=== PATIENT | female | born 1940 | race Caucasian/White ===

== ENCOUNTER → 2016-05-16 | Outpatient (CLI) | payer BC ==
[~2016-05-16] MED LIST: AMLO2.5T PO; BUTACAP10 PO; CALC500C70 PO; CALCTAB7 PO; CHOL100010 PO; HYDR-5688 PO; LOSA100T2 PO; METO1TAB69 PO; NRV5 PO; ULT/50 PO
== END | disposition home or self-care (01) ==
LOC: C.MAMM 15:07
PROVIDERS: ATTEND Internal Medicine Geriatric Medicine
DX: M85.80 Other specified disorders of bone density and structure, unspecified site (principal); S52.90XA Unspecified fracture of unspecified forearm, initial encounter for closed fracture; X58.XXXA Exposure to other specified factors, initial encounter; Z87.891 Personal history of nicotine dependence; Z78.0 Asymptomatic menopausal state

== ENCOUNTER → 2016-07-01 | Day surgery (SDC) | payer BC ==
[2016-06-17 10:48] VITALS: Ht 157.5 cm; Wt 88.2 kg
[~2016-07-01] VITALS: Ht 157.5 cm; Wt 88.2 kg
[~2016-07-01] MED LIST changes: -BUTACAP10 PO; -CALCTAB7 PO; +FENTANYL CITRATE INJ 50 MCG/1 ML 2 ML VIAL ONE; -HYDR-5688 PO; +LIDOCAINE HCL 2% 2 ML VIAL (20MG/ML) ONE; -NRV5 PO; +PROPOFOL IV EMULSION 10 MG/ML 20 ML VIAL IV ONE; +SODIUM CHLORIDE 0.9% 500ML 500 ML IV ONE
[2016-07-01 13:05] VITALS: TEMP 36.8
--- NOTE | 2016-07-01 13:37 | Endo History and Physical ---
History & Physical Date of Service: Jul 01, 2016. Chief Complaint: ABD PAIN Referring Physician: Dr Fadi Ying History of Present Illness 76 yo CF who presents for EGD secondary to abdominal pain. Past Medical History Arthritis, Cancer, Hypertension Past Surgical History Hx Cardiac Surgery: No Hx Internal Defibrillator: No Hx Pacemaker: No Hx Abdominal Surgery: Yes (APPY, D&C) Hx of Implantable Prosthesis: No Hx Post-Op Nausea and Vomiting: Yes Hx Cancer Surgery: Yes (RT MASTECTOMY) Hx Thoracic Surgery: No Hx Orthopedic: No Hx Urinary Tract Surgery: No Family History None Social History Smoking Status: Former Smoker Hx Substance Use: No Hx Alcohol Use: No Allergies Coded Allergies: No Known Allergies (Verified , 06/17/16) Current Medications Reported Home Medications Medications Dose Route/Sig Max Daily Dose Days Date Category Os-Mariano 500 Plus D (Calcium/Vitamin D) Tab 1 Tab PO QAM 06/17/16 Reported Norvasc (Amlodipine Besylate) 2.5 Mg Tab 2.5 Mg PO QAM 06/17/16 Reported Hyzaar (Losartan Potassium & Hydrochlo) 1 Tab Tab 1 Tab PO QAM 30 10/27/14 Reported Vitamin D (Cholecalciferol) 1,000 Inter.unit Tab 1,000 Inter.unit PO QAM 07/09/12 Reported Ultram (Tramadol Hcl) 50 Mg Tab 50 Mg PO Q6HR PRN 08/01/11 Reported Toprol-Xl (Metoprolol Succinate) 100 Mg Tabcr 100 Mg PO QAM 08/01/11 Reported Vital Signs Weight (Kilograms): 88.18 Height (Feet): 5 Height (Inches): 2 Date Time Temp Pulse Resp B/P Pulse Ox O2 Delivery O2 Flow Rate FiO2 07/01/16 13:05 36.8 76 18 165/83 97 Room Air Physical Exam General Appearance: WD/WN, no apparent distress Respiratory/Chest: Auscultation: breath sounds normal Cardiovascular: Heart Auscultation: RRR Abdomen: Bowel Sounds: normal Inspection & Palpation: soft, non-distended, no tenderness, guarding & rebound Assessment and Plan Assessment: 76 yo CF who presents for EGD secondary to abdominal pain. Plan: Proceed with EGD.
--- NOTE | 2016-07-01 13:46 | Discharge Instructions ---
Endoscopy Patient Instructions Date / Procedure(s) Performed Jul 01, 2016. EGD Allergy Information Coded Allergies: No Known Allergies (Verified , 06/17/16) Discharge Date / Findings Jul 01, 2016. Gastritis s/p biopsies Esophagitis Medication Instructions 1) OK to resume all medications today as prescribed. 2) Start Protonix 40mg by mouth each morning 1/2 hour prior to breakfast. Reported Home Medications Medications Dose Route/Sig Max Daily Dose Days Date Category Os-Mariano 500 Plus D (Calcium/Vitamin D) Tab 1 Tab PO QAM 06/17/16 Reported Norvasc (Amlodipine Besylate) 2.5 Mg Tab 2.5 Mg PO QAM 06/17/16 Reported Hyzaar (Losartan Potassium & Hydrochlo) 1 Tab Tab 1 Tab PO QAM 30 10/27/14 Reported Vitamin D (Cholecalciferol) 1,000 Inter.unit Tab 1,000 Inter.unit PO QAM 07/09/12 Reported Ultram (Tramadol Hcl) 50 Mg Tab 50 Mg PO Q6HR PRN 08/01/11 Reported Toprol-Xl (Metoprolol Succinate) 100 Mg Tabcr 100 Mg PO QAM 08/01/11 Reported Provider Instructions Activity Restrictions - No exercising or heavy lifting for 24 hours. - Do not drink alcohol the day of the procedure. - Do not drive a car or operate machinery until the day after the procedure. - Do not make any important decisions or sign important papers in 24 hours after the procedure. Following Day: - Return to full activity which may include returning to work/school. Diet Start your diet with liquids and light foods (jello, soup, juice, toast). Then eat your usual diet if not nauseated. Treatment For Common After Affects For mild abdominal pain, bloating, or excessive gas: - Rest - Eat lightly - Lie on right side Follow-Up Information Follow-up with Dr Fadi Ying as scheduled Anesthesia Information What You Should Know You have had a procedure that required some medicine to reduce anxiety and discomfort. This treatment is called moderate sedation. After receiving the treatment, you may be sleepy, but you will be able to breathe on your own. The effects of the treatment may last for several hours. Follow these instructions along with Activity/Diet recommendations noted above: * Do NOT do anything where dizziness or clumsiness would be dangerous. * Rest quietly at home today, then you can be up and about tomorrow. * Have a responsible person stay with you the rest of today. * You may have had an I.V. today. If so, you may take the dressing off later today. Recommendations Call your doctor if: * Trouble breathing * Continuous vomiting for more than 24 hours * Temperature above 101 degrees * Severe abdominal pain or bloating * Pain not relieved by pain medicine ordered * There is increased drainage or redness from any incision * A large amount of rectal bleeding greater than 2-3 tablespoons. (If you had a polyp/s removed or have hemorrhoids, a small amount of blood - from the rectum is to be expected.) * You have any unanswered questions or concerns. IN THE EVENT OF A SERIOUS EMERGENCY, GO TO THE NEAREST EMERGENCY ROOM Your discharge instructions were prepared by provider Julio Perdomo. Patient Instructions Signature Page Rosalia Truong Patient (or Guardian) Signature/Date: I have read and understand the instructions given to me by my caregivers. Caregiver/RN/Doctor Signature/Date: The above-named patient and/or guardian has received patient instructions on this date. + Original Patient Signature Page (only) stays with chart. Please make copy for patient.
--- NOTE | 2016-07-01 13:49 | GI REPORT ---
Procedure Date: 07/01/2016 1:30 PM Procedure: Upper GI endoscopy Indications: Epigastric abdominal pain Medicines: Monitored Anesthesia Care Complications: No immediate complications. Estimated Blood Loss: Estimated blood loss: none. Procedure: Pre-Anesthesia Assessment: - Prior to the procedure, a History and Physical was performed, and patient medications and allergies were reviewed. The patient's tolerance of previous anesthesia was also reviewed. The risks and benefits of the procedure and the sedation options and risks were discussed with the patient. All questions were answered, and informed consent was obtained. Prior Anticoagulants: The patient has taken no previous anticoagulant or antiplatelet agents. ASA Grade Assessment: II - A patient with mild systemic disease. After reviewing the risks and benefits, the patient was deemed in satisfactory condition to undergo the procedure. After obtaining informed consent, the endoscope was passed under direct vision. Throughout the procedure, the patient's blood pressure, pulse, and oxygen saturations were monitored continuously. The scope was introduced through the mouth, and advanced to the second part of duodenum. The upper GI endoscopy was accomplished without difficulty. The patient tolerated the procedure well. Findings: Mildly severe esophagitis with no bleeding was found. Localized moderate inflammation characterized by erosions and erythema was found in the gastric antrum. Biopsies were taken with a cold forceps for Helicobacter pylori testing. The examined duodenum was normal. Impression: - Mildly severe reflux esophagitis. - Gastritis. Biopsied. - Normal examined duodenum. Recommendation: - Resume previous diet. - Continue present medications. - Await pathology results. - Return to GI office as previously scheduled. Julio Perdomo DO 07/01/2016 1:49:57 PM This report has been signed electronically. Note Initiated On: 07/01/2016 1:30 PM I attest to the content of the Intraoperative Record and orders documented therein, exceptions below
--- NOTE | 2016-07-01 14:09 | Anesthesiology Progress Note ---
Anesthesia Post Op Note Date & Time Jul 01, 2016 at 14:09 Vital Signs Pain Intensity: 0 Vital Signs Past 12 Hours Date Time Temp Pulse Resp B/P Pulse Ox O2 Delivery O2 Flow Rate FiO2 07/01/16 14:06 66 16 135/73 95 Room Air 07/01/16 13:51 67 16 148/74 95 Room Air 07/01/16 13:05 36.8 76 18 165/83 97 Room Air Notes Mental Status: alert / awake / arousable, participated in evaluation Pt Amnestic to Procedure: Yes Nausea / Vomiting: adequately controlled Pain: adequately controlled Airway Patency, RR, SpO2: stable & adequate BP & HR: stable & adequate Hydration State: stable & adequate Anesthetic Complications: no major complications apparent
[2016-07-01 14:22] VITALS: BP 159/83; PULSE 61; O2SAT 95
== END | disposition home or self-care (01) ==
LOC: C.GI 12:40
PROVIDERS: ATTEND Internal Medicine
DX: K29.50 Unspecified chronic gastritis without bleeding (principal); K21.0 Gastro-esophageal reflux disease with esophagitis; R10.13 Epigastric pain; I10 Essential (primary) hypertension; Z87.891 Personal history of nicotine dependence; M19.90 Unspecified osteoarthritis, unspecified site

== ENCOUNTER → 2016-08-09 | Outpatient (CLI) | payer BC ==
[~2016-08-09] MED LIST changes: -FENTANYL CITRATE INJ 50 MCG/1 ML 2 ML VIAL ONE; -LIDOCAINE HCL 2% 2 ML VIAL (20MG/ML) ONE; +METO100T44 PO; -METO1TAB69 PO; -PROPOFOL IV EMULSION 10 MG/ML 20 ML VIAL IV ONE; -SODIUM CHLORIDE 0.9% 500ML 500 ML IV ONE
--- NOTE | 2016-08-09 13:33 | MAMMOGRAPHY REPORT ---
UNILATERAL LEFT DIGITAL SCREENING MAMMOGRAM TOMOSYNTHESIS WITH CAD: 08/09/2016 CLINICAL HISTORY: Asymptomatic. Personal history of breast cancer. TECHNIQUE: Breast tomosynthesis in addition to standard 2D mammography was performed. Current study was also evaluated with a Computer Aided Detection (CAD) system. Left CC and MLO 2-D and tomosynth esis images were obtained. COMPARISON: Comparison is made to exams dated: 07/10/2015 mammogram, 07/04/2014 mammogram, 07/02/2013 mammogram, 10/12/2012 aspiration, 10/05/2012 ultrasound, and 10/05/2012 mammogram - [facility]. BREAST COMPOSITION: There are scattered areas of fibroglandular density in the left breast. FINDINGS: There are no suspicious masses, calcifications, or areas of architectural distortion noted in the left breast. There has been no significant interval change compared to prior exams. Asymme tries seen posterior to the left nipple and in the left superior breast on the MLO view are stable c ompared to multiple prior exams including the 2011 exam. A port catheter overlies the left pectoral is muscle. IMPRESSION: ACR BI-RADS CATEGORY 2: BENIGN There is no mammographic evidence of malignancy in the left breast. A 1 year screening mammogram is recommended. The patient will receive written notification of the results. Approximately 10% of breast cancers are not detected with mammography. A negative mammographic repor t should not delay biopsy if a clinically suggestive mass is present. Dalia De Oliveira M.D. ah/:08/09/2016 13:21:16 Cigar Packer And Grader: Vanita CORDOVA(R)(M), [facility] letter sent: Normal 1/2 BI-RADS Code: ACR BI-RADS Category 2: Benign
== END | disposition home or self-care (01) ==
LOC: C.MAMM 09:40
PROVIDERS: ATTEND Internal Medicine Geriatric Medicine
DX: Z12.31 Encounter for screening mammogram for malignant neoplasm of breast (principal); Z85.3 Personal history of malignant neoplasm of breast

== ENCOUNTER → 2016-10-23 | Outpatient (CLI) | payer BC ==
[~2016-10-23] MED LIST changes: -METO100T44 PO; +METO1TAB69 PO
[2016-10-23 17:36] LABS: CHOLESTEROL/HDL RATIO 3.3; THYROID STIMULATING HORMONE 2.36 uIu/ml (0.300-4.500)
[2016-10-24 07:04] LABS: ESTIMATED AVERAGE GLUCOSE 117 mg/dl; HA1C FLAG Normal (Normal)
--- NOTE | 2016-10-28 08:16 | CODING QUERY MEDICAL NECESSITY ---
SUPPORTING DIAGNOSIS NEEDED Dr. Ying, A supporting diagnosis is required for the test/procedure performed on this patient in order for us to be reimbursed by the patient's insurance. Please provide a supporting diagnosis for the following test/procedure listed below next to the test name along with your signature. *If there is no additional diagnosis for this patient that would support the following test/procedure please document that below next to the test/procedure. Test(s)/Procedure(s) that require a supporting diagnosis: * ([id number]) VITAMIN D ASSAY DIAGNOSIS: * [id number] GLYCATED HEMOGLOBIN DIAGNOSIS: DATE OF SERVICE: 10/23/16 Provider Signature: Date: Thank you Jairon Littlejohn Health Information Management Once completed, please kindly fax back to [phone] For questions please call [phone]
== END ==
LOC: C.LAB 15:06
PROVIDERS: ATTEND Internal Medicine Geriatric Medicine
DX: I10 Essential (primary) hypertension (principal); E55.9 Vitamin D deficiency, unspecified; R73.9 Hyperglycemia, unspecified

== ENCOUNTER → 2017-05-16 | Outpatient (CLI) | payer BC ==
[~2017-05-16] MED LIST changes: +METO100T44 PO; -METO1TAB69 PO
[2017-05-16 15:27] LABS: BASO % 0.2 %; BASO ABS # 0.02 K/uL (0-0.2); EOS % 0.2 %; EOS ABS # 0.02 K/uL (0-0.5); HEMATOCRIT 42.2 % (37-47); HEMOGLOBIN 13.9 g/dL (12.0-16.0); IG# 0.03 K/uL (0.00-0.02); LYMPH ABS # 1.95 K/uL (1.2-3.4); MEAN CELL VOLUME 91.7 fL (80-100); MEAN CORPUSCULAR HEMOGLOBIN 30.2 pg (25-34); MEAN CORPUSCULAR HGB CONC 32.9 g/dl (32-36); MEAN PLATELET VOLUME 10.1 fL (7.4-10.4); MONO % 5.5 %; MONO ABS # 0.57 K/uL (0.11-0.59); NEUT % 74.8 %; PLATELET COUNT 288 K/uL (130-400); RED CELL DISTRIBUTION WIDTH CV 13.5 % (11.5-14.5); RED CELL DISTRIBUTION WIDTH SD 44.8 fL (36.4-46.3); WHITE BLOOD COUNT 10.29 K/uL (4.8-10.8)
[2017-05-16 15:36] LABS: BLOOD UREA NITROGEN 19 mg/dl (7-18); CALCIUM 9.3 mg/dl (8.5-10.1); CARBON DIOXIDE 29 mmol/L (21-32); CREATININE 0.78 mg/dl (0.60-1.20); GLUCOSE 151 mg/dl (70-99); POTASSIUM 3.5 mmol/L (3.5-5.1); SODIUM 139 mmol/L (136-145)
== END | disposition home or self-care (01) ==
LOC: C.LAB 13:38
PROVIDERS: ATTEND Internal Medicine Geriatric Medicine
DX: I10 Essential (primary) hypertension (principal); R73.9 Hyperglycemia, unspecified; M19.90 Unspecified osteoarthritis, unspecified site; E78.5 Hyperlipidemia, unspecified; E55.9 Vitamin D deficiency, unspecified

== ENCOUNTER → 2017-08-11 | Outpatient (CLI) | payer BC ==
--- NOTE | 2017-08-12 07:39 | MAMMOGRAPHY REPORT ---
UNILATERAL LEFT DIGITAL SCREENING MAMMOGRAM TOMOSYNTHESIS WITH CAD: 08/11/2017 CLINICAL HISTORY: Asymptomatic. Personal history of breast cancer. TECHNIQUE: Left breast tomosynthesis in addition to standard 2D mammography was performed. Current st udy was also evaluated with a Computer Aided Detection (CAD) system. COMPARISON: Comparison is made to exams dated: 08/09/2016 mammogram, 07/10/2015 mammogram, 07/04/2014 m ammogram, 07/02/2013 mammogram, 10/05/2012 mammogram, and 04/03/2012 mammogram - [facility]. BREAST COMPOSITION: There are scattered areas of fibroglandular density in the left breast. FINDINGS: The hub of a Mediport catheter projects over the superior left pectoralis muscle on the MLO view. The glandular pattern is similar to prior exams. No suspicious mass, architectural distortio n or cluster of microcalcifications is seen. IMPRESSION: ACR BI-RADS CATEGORY 1: NEGATIVE There is no mammographic evidence of malignancy. A 1 year screening mammogram is recommended. The pa tient will receive written notification of the results. Approximately 10% of breast cancers are not detected with mammography. A negative mammographic report should not delay biopsy if a clinically suggestive mass is present. Ying Yadav M.D. ay/:08/11/2017 12:31:14 Harness Inspector: Lana BUSTAMANTE)(M), [facility] letter sent: Normal 1/2 BI-RADS Code: ACR BI-RADS Category 1: Negative
== END | disposition home or self-care (01) ==
LOC: C.MAMM 12:04
PROVIDERS: ATTEND Internal Medicine Geriatric Medicine
DX: Z12.31 Encounter for screening mammogram for malignant neoplasm of breast (principal); Z85.3 Personal history of malignant neoplasm of breast; Z90.11 Acquired absence of right breast and nipple

== ENCOUNTER → 2017-11-26 | Outpatient (CLI) | payer BC ==
[2017-11-26 15:44] LABS: BASO % 0.3 %; BASO ABS # 0.03 K/uL (0-0.2); EOS % 0.4 %; EOS ABS # 0.04 K/uL (0-0.5); HEMATOCRIT 41.7 % (37-47); HEMOGLOBIN 13.6 g/dL (12.0-16.0); IG# 0.03 K/uL (0.00-0.02); LYMPH % 19.2 %; LYMPH ABS # 1.91 K/uL (1.2-3.4); MEAN CELL VOLUME 89.5 fL (80-100); MEAN CORPUSCULAR HEMOGLOBIN 29.2 pg (25-34); MEAN CORPUSCULAR HGB CONC 32.6 g/dl (32-36); MONO % 6.9 %; MONO ABS # 0.69 K/uL (0.11-0.59); NEUT % 72.9 %; NEUT ABS # 7.24 K/uL (1.4-6.5); PLATELET COUNT 265 K/uL (130-400); RED CELL DISTRIBUTION WIDTH CV 13.3 % (11.5-14.5); WHITE BLOOD COUNT 9.94 K/uL (4.8-10.8)
[2017-11-26 16:25] LABS: ALBUMIN 3.7 gm/dl (3.4-5.0); ALKALINE PHOSPHATASE 90 U/L (45-117); ALT/SGPT 14 U/L (12-78); AST/SGOT 12 U/L (15-37); BLOOD UREA NITROGEN 18 mg/dl (7-18); CALCIUM 9.1 mg/dl (8.5-10.1); CARBON DIOXIDE 29 mmol/L (21-32); CHOLESTEROL 175 mg/dl (0-200); CREATININE 0.83 mg/dl (0.60-1.20); GLUCOSE 86 mg/dl (70-99); LDL CHOLESTEROL CALCULATED 89 mg/dl; POTASSIUM 3.8 mmol/L (3.5-5.1); SODIUM 139 mmol/L (136-145); TOTAL PROTEIN 7.6 gm/dl (6.4-8.2)
[2017-11-27 07:00] LABS: HEMOGLOBIN A1C 5.8 % (4.5-5.6)
== END | disposition home or self-care (01) ==
LOC: C.LAB 14:51
PROVIDERS: ATTEND Internal Medicine Geriatric Medicine
DX: I10 Essential (primary) hypertension (principal); R73.9 Hyperglycemia, unspecified; M19.90 Unspecified osteoarthritis, unspecified site; E78.5 Hyperlipidemia, unspecified; E55.9 Vitamin D deficiency, unspecified; Z68.35 Body mass index [BMI] 35.0-35.9, adult

== ENCOUNTER 2021-11-12 06:43 | Observation (INO) ==
--- NOTE | 2021-10-04 10:32 | PAT Medication Instructions ---
Medication Instructions Date of Service October 04, 2021 Home Medications Medication Instructions Recorded amlodipine 10 mg tablet 10 mg PO QAM #90 tab 05/31/20 tramadol 50 mg tablet 100 mg PO TID PRN #180 tab 09/12/21 cholecalciferol (vitamin D3) 75 mcg (3,000 unit) tablet 3,000 unit PO QAM calcium carbonate 600 mg-vitamin D3 20 mcg (800 unit) chewable tablet (Caltrate 600 plus D) 1 tab PO QAM econazole 1 % topical cream 1 appln TOPICAL BID PRN capsaicin 0.025 % topical cream 1 appln TOPICAL DAILY PRN amlodipine 10 mg tablet 10 mg PO QAM pantoprazole 40 mg tablet,delayed release 40 mg PO QAM spironolactone 50 mg tablet 50 mg PO QAM telmisartan 80 mg-hydrochlorothiazide 25 mg tablet 1 tab PO QAM cyanocobalamin (vitamin B-12) 1,000 mcg tablet 1,000 mcg PO DAILY ferrous sulfate 325 mg (65 mg iron) tablet 325 mg PO QAM tramadol 50 mg tablet 100 mg PO TID PRN metoprolol succinate 100 mg tablet,extended release 24 hr 150 mg PO QAM STOP taking 24 hours before surgery econazole 1 % topical cream 1 appln TOPICAL BID PRN capsaicin 0.025 % topical cream 1 appln TOPICAL DAILY PRN DO NOT take the morning of surgery cholecalciferol (vitamin D3) 75 mcg (3,000 unit) tablet 3,000 unit PO QAM calcium carbonate 600 mg-vitamin D3 20 mcg (800 unit) chewable tablet (Caltrate 600 plus D) 1 tab PO QAM spironolactone 50 mg tablet 50 mg PO QAM telmisartan 80 mg-hydrochlorothiazide 25 mg tablet 1 tab PO QAM cyanocobalamin (vitamin B-12) 1,000 mcg tablet 1,000 mcg PO DAILY ferrous sulfate 325 mg (65 mg iron) tablet 325 mg PO QAM Take morning of surgery With a small sip of water, OTHERWISE NOTHING TO EAT OR DRINK AFTER MIDNIGHT: amlodipine 10 mg tablet 10 mg PO QAM pantoprazole 40 mg tablet,delayed release 40 mg PO QAM tramadol 50 mg tablet 100 mg PO TID PRN (if needed) metoprolol succinate 100 mg tablet,extended release 24 hr 150 mg PO QAM Take evening before surgery tramadol 50 mg tablet 100 mg PO TID PRN (if needed) Other Notes If you have any questions please call us at [phone] or [phone] or [phone] or [phone]
--- NOTE | 2021-10-08 12:13 | Anesthesiology Consultation ---
Date of Service October 08, 2021 Assessment & Plan (1) Encounter for pre-operative examination: - Case discussed with Dr. Lira including cardiac history and note below, he advised patient is acceptable risk to proceed and does not need anything further prior to surgery. - cardiology 08/30/21 [place]: "...blood pressure is elevated, both today and on recent prior recordings it is predominantly systolic hypertension although several years ago her pressure was quite severely elevated with both systolic and diastolic. I had intended to increase her metoprolol at her last visit but that was not done, I am increasing it to 150 mg daily...Dyspnea on exertion: This appears to be about the same, I do not have a clear cardiovascular explanation for it and it may be deconditioning and her age. Conceivably she has chronotropic incompetence which we could look for with monitoring, however that seems unlikely and she is satisfied with the way she feels...Ectopic atrial rhythm...appears to have a low atrial rhythm, that was consistent at least on 2 electrocardiograms in the office by about 40 minutes...may not be present all of the time and is probably not a significant abnormality however could affect her heart rate response to activity as it may not respond appropriately to activities the way sinus rhythm does...not an escape rhythm since her heart rate is in the 70s on both electrocardiograms...heart rate however increased appropriately on stress testing therefore this is not likely a cause of her symptoms, although her stress test was done pharmacologically..." - COVID screening: Per assessment on 10/08/2021: Travel screen negative, no known COVID-19 positive contacts or current COVID-19 related symptoms in past 2 weeks. Pt vaccinated. Surgeon arranging preop COVID testing, scheduled 11/08/2021. Awaiting results. Chart Review Chart Review: Acceptable Risk for Surgery and Patient seen in Pre Admission Testing Teaching & Discussion Pre-Anesthesia Teaching/Discussion Notes: Instructed NPO after midnight before surgery, except medications with 15 cc of water. Medication instructions provided according to the PAT guidelines. History Surgery Operation Date: 11/12/21 08:50 Proposed Procedures p Right Total Knee Replacement - Jose Cerrato MD Height/Weight Height: 5 ft 1.5 in Weight: 86.8 kg Allergies Allergy/AdvReac Type Severity Reaction Status Date / Time No Known Allergies Allergy Verified 10/04/21 09:19 Medications Home Medications Medication Instructions Recorded Confirmed Last Taken cholecalciferol (vitamin D3) 75 3,000 unit PO QAM tab 09/25/18 10/04/21 07/18/20 09:00 mcg (3,000 unit) tablet calcium carbonate 600 mg-vitamin 1 tab PO QAM 11/12/18 10/04/21 07/18/20 09:00 D3 20 mcg (800 unit) chewable tablet (Caltrate 600 plus D) econazole 1 % topical cream 1 appln TOPICAL BID PRN #15 gm 11/19/18 10/04/21 05/23/19 capsaicin 0.025 % topical cream 1 appln TOPICAL DAILY PRN gm 11/23/18 10/04/21 05/23/19 amlodipine 10 mg tablet 10 mg PO QAM #90 tab 05/31/20 10/04/21 07/18/20 09:00 pantoprazole 40 mg tablet,delayed 40 mg PO QAM tab 07/05/20 10/04/21 07/18/20 09:00 release spironolactone 50 mg tablet 50 mg PO QAM 07/13/20 10/04/21 07/18/20 09:00 telmisartan 80 1 tab PO QAM 07/13/20 10/04/21 07/18/20 09:00 mg-hydrochlorothiazide 25 mg tablet cyanocobalamin (vitamin B-12) 1,000 mcg PO DAILY 01/10/21 10/04/21 Unknown 1,000 mcg tablet ferrous sulfate 325 mg (65 mg 325 mg PO QAM 01/10/21 10/04/21 Unknown iron) tablet tramadol 50 mg tablet 100 mg PO TID PRN #180 tab 09/12/21 10/04/21 Unknown metoprolol succinate 100 mg 150 mg PO QAM 10/04/21 10/04/21 Unknown tablet,extended release 24 hr Past Medical History Medical History Breast cancer (~10/2005) Chronic back pain CLAIRE (dyspnea on exertion) Dyslipidemia Ectopic atrial rhythm Gastroesophageal reflux disease Hypertension Limb alert care status Osteopenia of left thigh Port-A-Cath in place Sleep apnea Patient denies h/o stroke, seizures, heart attack, heart failure, DM, blood clots or blood transfusions. Exercise / Class Metabolic Activity II 4-5 Yardwork/Stairs/Walk up hill (SOB with 1 FOS, chronic without change or worsening, denies chest discomfort) Past Family History Family History Father Multiple myeloma Mother Lung disease Other No family history of adverse response to anesthesia Denies family history of Ovarian cancer Prostate cancer Myocardial infarction Breast cancer Lung cancer Colorectal cancer Past Surgical History Surgical History H/O mastectomy History of cataract surgery History of dilation and curettage History of esophagogastroduodenoscopy (EGD) Hx of appendectomy Hx of colonoscopy Hx of foot surgery Nausea and vomiting after administration of anesthetic agent Past Anesthesia History No Hx of Anesthesia Complications and No Family Hx of Anesthesia Complications History of PONV History of PONV (denies needing scop patch) and Hx of Motion Sickness Social History Smoking Status: Never smoker Do You Dip or Chew Tobacco: No Hx Alcohol Use: Yes Alcohol type: wine alcohol intake frequency: a few times a month Hx Substance Use: No substance use type: does not use Review of Systems Patient denies chest pain, fever, chills, cough, wheezing, or palpitations. Physical Exam Vital Signs Vitals BP 132/80 P 65 TEMP 98.3 SP02 94% on RA RESP 17 Physical Full cervical extension range of motion without pain TMD 3.5 finger breaths Mallampati Score 3 Dentition: intact, upper front plate and front implants, one chipped tooth with upcoming planned extraction-pt plans to contact surgeon's office as FYI/confirm acceptable; denies loose teeth, caps or crowns Lungs: normal respiratory effort. Clear throughout to auscultation, no ad ventitious breath sounds Cardiac: regular rate and rhythm, no murmurs noted Carotid arteries: negative bruit bilat Lab Results Anesthesia Preop Results Results Anesthesia Widget: WBC 11.21 K/uL (4.8-10.8) H 10/08/21 Hgb 14.8 g/dL (12.0-16.0) 10/08/21 Hct 45.0 % (37-47) 10/08/21 Plt 279 K/uL (130-400) 10/08/21 Na 137 mmol/L (136-145) 10/08/21 K 4.3 mmol/L (3.5-5.1) 10/08/21 Cl 102 mmol/L (98-107) 10/08/21 CO2 26 mmol/L (21-32) 10/08/21 BUN 24 mg/dl (6-23) H 10/08/21 Creat 0.80 mg/dl (0.6-1.2) 10/08/21 Glucose Level 114 mg/dl (70-99(Fasting)) H 10/08/21 PT 10.3 Seconds (9.0-12.0) 10/08/21 PTT 29.6 Seconds (21.0-31.0) 10/08/21 INR 1.0 (0.9-1.1) 10/08/21 Blood Type O Negative 10/08/21 Antibody Screen NEGATIVE 10/08/21 Testing Electrocardiogram Date: 10/08/21 NSR, rate 63 bpm Left axis deviation Chest X-Ray Date: 10/08/21 Frontal and lateral radiographs of the chest demonstrate the cardiomediastinal silhouette to be within normal limits. A Port-A-Cath is in place. The lungs are clear of alveolar opacities. There is no evidence for effusion bilaterally. There is no evidence for vascular congestion. There is no acute osseous pathology. IMPRESSION: 1. No acute cardiopulmonary disease. Stress Test Date: 08/15/21 Pharmacologic MPHR 92% Negative for myocardial ischemia EF 55-60% No wall motion abnormalities Mild mitral regurgitation Mild tricuspid regurgitation
--- NOTE | 2021-11-09 14:47 | History and Physical Report ---
DATE OF ADMISSION: 11/12/2021. CHIEF COMPLAINT: Persistent progressive right knee pain and discomfort. HISTORY OF PRESENT ILLNESS: The patient is an 81-year-old female who presents for surgical treatment of her right knee. She has got a long history of right knee pain and discomfort that has gradually gotten worse over time. She has been through extensive conservative treatment including injections, which have become less successful over time. She describes global pain. The more she is up and on it, the more it hurts. Gets stiff. She was actually scheduled to have her knee replaced in the past, but had to cancel due to some social issues. She now presents for surgical treatment. 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 PAST MEDICAL HISTORY: Significant for: 1. Hypertension. 2. Obesity with BMI of 36. 3. History of breast cancer. 4. Anemia. PAST SURGICAL HISTORY: Includes: 1. Mastectomy. 2. Heel spur removal. ALLERGIES: None. CURRENT MEDICATIONS: Include: 1. Iron. 2. Vitamin B12. 3. Unspecified blood pressure medicine. SOCIAL HISTORY: An 81-year-old female. She is . Does not smoke. Two drinks per week. FAMILY HISTORY: Noncontributory. REVIEW OF SYSTEMS: Negative for diabetes. Denies any neurological problems, vascular problems or bleeding disorders. No chest pain or shortness of breath. No history of DVT or PE. PHYSICAL EXAMINATION: GENERAL: Shows a pleasant middle-aged female. Looks to be in pretty good health. HEENT: Benign. NECK: Supple. No lymphadenopathy. LUNGS: Clear to auscultation. HEART: Has a regular rate and rhythm. ABDOMEN: Soft, nontender, nondistended. EXTREMITIES: Grossly neurovascularly intact except as follows. Examination of the right knee reveals the patient ambulates independently. She has got varus alignment to her knee. She is tender with medial joint line. She has got some bony hypertrophy medially. Small knee effusion. Range of motion is about 10 degrees short of full extension to about 90 degrees of flexion. The knee is pretty stiff. No pain with hip motion. X-RAYS: X-rays of the right knee reviewed. It shows advanced right knee degenerative joint disease. She has got tricompartment disease. Complete loss of her joint space. A fairly similar, but less severe left knee degenerative joint disease. 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 She has failed conservative treatment. She would like to proceed with knee replacement. She is hoping to go to [facility] for rehabilitation. PLAN: We will proceed with right knee replacement. The risks and benefits of this procedure were explained to the patient and include but not limited to DVT, PE, , infection, neurological injury, vascular injury, bleeding problem, pain, limited range of motion, stiffness, failure to relieve her symptoms, incomplete relief of symptoms, need for further surgery in the future, etc. The patient understands and desires to proceed. Informed consent was obtained. She is hoping to go to [facility] postoperatively. We will try and arrange for that if possible depending on insurance issues. She does ____ take care of her while she is recovering. She will follow back in the clinic in 2 weeks postop. Job ID: [id number] [facility] HOSPITALElvira
[~2021-11-12 06:43] MED LIST changes: +ACETAMINOPHEN 500 MG TAB PO SCH; -AMLO2.5T PO; +BUPIVACAINE 0.5 % 5 MG/1 ML PF 10ML VIAL ONE; +BUPIVACAINE LIPOSOME/PF 266 MG, BUPIVACAINE/EPINEPHRINE 50 ML, SODIUM CHLORIDE 0.9% 30 ... INFIL SCH; -CALC500C70 PO; -CHOL100010 PO; +CeleBREX 200 MG CAP PO SCH; +FAMOTIDINE 20 MG TAB PO SCH; -LOSA100T2 PO; +LR 500ML BOLUS, THEN 15ML/HR IV SCH; +LR 60ML/HR IV SCH; -METO100T44 PO; +METOCLOPRAMIDE HCL 10 MG TABLET PO SCH; +ROPIVACAINE 0.5% 5 MG/ML 30 ML VIAL ONE; +TRANEXAMIC ACID 1,000 MG **IV Intra-op IV SCH; -ULT/50 PO; +ceFAZolin 2000MG 2,000 MG/15 ML SYR IV SCH
[2021-11-12] MEDS ORDERED: BUPIVACAINE 0.5 % 5 MG/1 ML PF 10ML VIAL ONE (06:47)
--- NOTE | 2021-11-12 06:53 | History & Physical Bridge Note ---
Date of Service November 12, 2021 History & Physical Bridge Note I have examined the patient, reviewed the History & Physical and in the interval since the performance of the History & Physical I have noted the following changes of clinical significance: no changes noted
[2021-11-12] MEDS ORDERED: PROPOFOL IV EMULSION 10 MG/ML 20 ML VIAL IV ONE (07:40)
[2021-11-12] MEDS ORDERED: fentaNYL citrate 100 MCG/2 ML VIAL ONE (07:40)
[2021-11-12] MEDS ORDERED: ONDANSETRON INJ 2 MG/ML 2 ML VIAL ONE (07:40)
[2021-11-12] MEDS ORDERED: ePHEDrine sulfate 50 MG/ML AMP IV PRN (08:27)
[2021-11-12] MEDS ORDERED: ATROPINE SULFATE 0.1 MG/ML 10ML SYR IV PRN (08:27)
[2021-11-12] MEDS ORDERED: fentaNYL citrate 100 MCG/2 ML VIAL IV PRN (08:27)
[2021-11-12] MEDS ORDERED: ONDANSETRON INJ 2 MG/ML 2 ML VIAL IV PRN (08:27)
[2021-11-12] MEDS ORDERED: SODIUM CHLORIDE 0.9% PF 50 ML VIAL ONE (08:59)
[2021-11-12] MEDS ORDERED: BUPIVACAINE LIPOSOME 1.3% 266 MG/20 ML VIAL ONE (08:59)
[2021-11-12] MEDS ORDERED: BUPIVACAINE/EPINEPHRINE 0.25% 1:200,000 30 ML VIAL ONE (08:59)
[2021-11-12] MEDS ORDERED: DEXAMETHASONE SOD INJ 4 MG/ML VIAL ONE (09:33)
[2021-11-12] MEDS ORDERED: ePHEDrine sulfate 50 MG/ML SYR ONE (09:55)
--- NOTE | 2021-11-12 11:34 | Operative Report ---
PG Post Operative Report Pre & Post Diagnosis Operation Date: 11/12/21 08:50 Pre-Op Diagnosis: Right Knee Osteoarthritis Post-Op Diagnosis: Right Knee Osteoarthritis I identified the patient and participated in the time-out.: Yes Procedure Operation Date: 11/12/21 08:50 Actual Procedures p Right Total Knee Replacement(Right) - Jose Cerrato MD Surgeon Jose Cerrato MD Personnel Director Gilberto Trivedi PA-C Estimated Blood Loss 50 Findings Consistent with Post-Op Diagnosis Operative findings revealed advanced right knee tricompartment DJD. She had extensive grade 4 [id number] disease in all 3 compartments with a very stiff knee. She had a chronic ACL deficiency. Osteophytes in all 3 compartments. Specimens Right knee sent for pathology Anesthesia Type General Regional Complications none Disposition Accompanied Patient To Recovery: No Indications Patient 81-year-old female has had a long history of bilateral knee pain discomfort of the right side of the greater than left. She been through extens curly conservative treatment which became less successful over time patient became significantly debilitated by her knee pain and discomfort. She elected proceed with total knee arthroplasty. Description of Procedure Operative implants consist of: 1 Biomet Vanguard size 65 right posterior stabilized femoral component. 2. Biomet size 67 tibial tray. 3. 14 mm posterior stabilized polyethylene plus insert 4. 34 x 8 and half all Paller patella. The patient was taken the operating, identified, and placed on the operating table supine position protectors were properly padded. IV antibiotics tried by anesthesia team. A spinal anesthetic and abductor canal block had provided in the holding area. A Rivero catheter was placed in sterile fashion. Right Tetrick was then placed in the right lower extremities and prepped and draped in usual sterile fashion. The right leg was elevated exsanguinated with use of an Esmarch in terms playset 300 mmHg. An anterior approach of the right knee was then performed to longitudinal incision centered over the patella. Upon making the incision the patient was having discomfort and clearly failing this so a general anesthetic was implemented. We then proceeded with the procedure. Sharp dissection was carried through subcutaneous tissue directly down the extensor mechanism. A medial parapatellar arthrotomy incision was made. Some subperiosteal dissection was carried out medially. The fat pad was resected from Neath patella tendon. The lateral patellofemoral ligament was released. Patella subluxated laterally. She had large osteophytes around the patella so I had to remove these in order to immobilize this. The osteophytes were taken off the intercondylar notch area. The PCL was released from the distal femur. We tried to subluxate the tibia anterior but were unable to do so due to the large osteophytes posteriorly. I therefore elected to cut the femur first. The distal femur examined the sharp drill bit intramedullary canal was suction. A right 5 degree valgus cutting guide was placed. Distal femoral cutting block was pinned in place. The distal femoral cut was made to take an additional 5 mm of bone off distal femur due to her flexion contracture. Once we are removed from the distal femur I can get in the back of the tibia and we could subluxated anteriorly so we went to a tibial preparation. The external tibial alignment jig was then placed in the interface the tibia and adjusted 14 mm medially. Proximal tibial cut was made remove about 1 mm bone from the most deficient aspect. Some osteophytes taken off medial and posterior medially. Tibia sized to a size 67. Attention drawn back to the femur. The femur was then sized to a size 67.5. The AP cutting block was pinned parallel to the epicondylar axis which was 4 degrees of external rotation. Anterior cut, anterior chamfer, posterior cut, posterior chamfer cuts were made. Upon placed in the box guide it was clearly was very wide on this patient's femur based on the medial and lateral dimensions. Therefore I thought I had no from anterior to downsize this. The 65 cutting block was placed in the anterior and posterior and chamfer cuts were then revisited. I then placed the a 65 box guide was able to place this nicely and still was just a slightly prominent. The box cut was made. The knee was flexed. The remnants of the medial lateral menisci were excised. The osteophytes were taken off the posterior aspect of the femur. Trial femoral component was placed. Tibial tray was pinned in maximum external rotation and the drill and stem punch were used to create defect in proximal tibia for the tibial tray. We then trialed the knee and the 14 mm insert seem to fit most appropriately. There is still seem to be a little bit of laxity medially. Therefore elected to place a PS plus insert. Attention drawn the patella. The patella was cleaned of all soft tissues. Patella thickness measured 19 mm and cut down to 13. It was sized to a size 34 patella. The lug holes were drilled. 34 patella. The lateral osteophyte was removed. Patella button was placed. Knee was taken through range of motion and the patella tracked nicely with no thumbs test. Attention drawn to placing permanent components. Nupathe all trial components were removed. Bone plug was placed in the distal femur limit blood loss. Double batch Palacos G cement was mixed. A Biomet Vanguard size 65 right posterior stabilized femoral component, a size 67 tibial tray, a 14 mm posterior stabilized polyethylene plus insert and a 34 x 8 and half all Paller patella were then cemented in place. New spreadout into full extension until cement hardened. Final cement check was then performed. The pericapsular tissues were injected with total 100 cc of combination of 20 cc of Exparel, 30 cc normal saline, 50 cc of quarter percent Marcaine with epinephrine. Patient did receive 1 g tranexamic acid. The tourniquet was then let down for final tourniquet time of 69 minutes. Hemostasis assured use electrocautery. Extensor mechanism closed with a combination 1 PDS suture #1 Vicryl suture in figure-of- eight fashion. Extensor mechanism checked found to be intact and subcutaneous tissue then closed with 2 Dexon suture in a buried interrupted fashion skin was closed skin jaclyn. Leg was then cleaned and dried a sterile dressing was Xeroform, 4 fours, sterile cast padding, Nathanael bandage were applied. The patient was then brought out of general anesthesia and transferred to the recovery room in stable condition. Patient tolerated procedure well and there are no complications. Gilberto Trivedi, my physician surgeon's assistant, was present for the entire procedure. His assistance was essential and required for appropriate patient positioning, prepping and draping, surgical exposure, performing the technical details of the operation, placement the implants, closure of the wound, and placement of the sterile bandage. I attest to the content of the Intraoperative Record and any orders documented therein. Any exceptions are noted below.
--- NOTE | 2021-11-12 11:52 | XRay Report ---
RIGHT KNEE 2 VIEWS History: Right total knee arthroplasty. Degenerative arthritis. Postop. FINDINGS: The patient is status post a right total knee arthroplasty. The hardware is intact. No frac ture or dislocation. Skin jaclyn are in place. IMPRESSION: Right total knee arthroplasty. No evidence for hardware complication. ACT 112: Negative or not required by law. Electronically signed by: Marty Hernandez M.D. 11/12/2021 11:50 AM
--- NOTE | 2021-11-12 11:59 | Anesthesiology Progress Note ---
Date of Service November 12, 2021 Anesthesia Post Procedure Vital Signs Vital Signs: Temp Pulse Pulse Resp BP Pulse Ox O2 Del Method 11/12/21 11:45 65 17 103/59 L 94 Nasal Cannula 11/12/21 11:35 64 16 103/54 L 96 Oxymask 11/12/21 11:26 97.2 F L 69 12 109/59 L 96 Oxymask 11/12/21 07:06 98.2 F 68 20 149/63 H 97 Room Air O2 Flow Rate 11/12/21 11:45 2 11/12/21 11:35 3 11/12/21 11:26 5 11/12/21 07:06 Transfer of Care Handoff Completed per policy Notes Mental Status: alert / awake / arousable and participated in evaluation Patient Amnestic to Procedure: Yes Nausea / Vomiting: adequately controlled Pain: adequately controlled Airway Patency, RR, SpO2: stable & adequate BP & HR: stable & adequate Hydration State: stable & adequate Neuraxial Anesthesia: was administered and sensory block is resolving Anesthetic Complications: no major complications apparent and Pt Satisfied with anesthetic care
[2021-11-12] MEDS ORDERED: bisacodyL 10 MG SUPP PR PRN (12:14)
[2021-11-12] MEDS ORDERED: ECONAZOLE NITRATE 1% CRM 15 GM TUBE TOP PRN (12:14)
[2021-11-12] MEDS ORDERED: ALUMINUM/MAGNESIUM SUSP 30 ML UDC PO PRN (12:14)
[2021-11-12] MEDS ORDERED: HYDROmorphone INJ 0.5 MG/0.5 ML SYR IV PRN (12:14)
[2021-11-12] MEDS ORDERED: METOCLOPRAMIDE HCL INJ 5 MG/ML 2 ML VIAL IV PRN (12:14)
[2021-11-12] MEDS ORDERED: MAGNESIUM HYDROXIDE SUSP 30 ML UDC PO PRN (12:14)
[2021-11-12] MEDS ORDERED: NALOXONE HCL 0.4 MG/1 ML VIAL/CARP IV PRN (12:14)
[2021-11-12] MEDS: SODIUM CHLORIDE 0.9% 1000ML 1,000 ML IV SCH ×2 (12:50→21:53)
[2021-11-12] MEDS: KETOROLAC TROMETHAMINE 15 MG/ML VIAL IV SCH ×2 (13:41→18:24)
[2021-11-12] MEDS: ACETAMINOPHEN 500 MG TAB PO SCH ×2 (13:41→22:29)
[2021-11-12] MEDS ORDERED: TRANEXAMIC ACID / 0.7% NACL 1,000 MG/100 ML BAG IV SCH (17:30)
[2021-11-12] MEDS: ASCORBIC ACID 500 MG TAB PO SCH (18:13)
[2021-11-12] MEDS: oxyCODONE HCL IR 5 MG TAB (IMMEDIATE RELEASE) PO PRN ×2 (18:20→22:28)
[2021-11-12] MEDS: ceFAZolin 2000MG 2,000 MG/15 ML SYR IV SCH (18:25)
[2021-11-12] MEDS: DOCUSATE SODIUM 100 MG CAP PO SCH (21:49)
[2021-11-12] MEDS: SENNA 8.6 MG TAB PO SCH (21:49)
[2021-11-12] MEDS: ASPIRIN 81 MG ECTAB PO SCH (21:50)
[2021-11-13] MEDS: KETOROLAC TROMETHAMINE 15 MG/ML VIAL IV SCH ×4 (01:06→22:08)
[2021-11-13] MEDS: ceFAZolin 2000MG 2,000 MG/15 ML SYR IV SCH (01:06)
[2021-11-13] MEDS: oxyCODONE HCL IR 5 MG TAB (IMMEDIATE RELEASE) PO PRN ×2 (04:59→11:16)
[2021-11-13] MEDS: ACETAMINOPHEN 500 MG TAB PO SCH ×3 (05:00→22:07)
[2021-11-13 06:10] LABS: Hematocrit (blood only) 30.8 % (34.1-44.9); Hemoglobin 10.2 g/dl (12.0-16.0); Mean Corpuscular Hemoglobin 30.4 pg (25.0-34.0); Mean Corpuscular Hgb Conc 33.1 g/dL (32.0-36.0); Mean Corpuscular Volume 91.9 fL (80.0-100.0); Mean Platelet Volume 10.1 fL (9.4-12.3); Platelet Count 210 K/uL (130-400); RDW Coefficient of Variation 13.2 % (11.5-14.5); RDW Standard Deviation 44.2 fL (36.4-46.3); Red Blood Count 3.35 M/uL (3.93-5.22); White Blood Count 18.27 K/ul (4.8-10.8)
[2021-11-13 06:37] LABS: BUN Creatinine Ratio 25.7 (10-20); Calcium 7.9 mg/dl (8.5-10.1); Creatinine Clr Calc Pharmacy 39.1 ml/min; Est GFR (African American) 52.8 ml/min; Est GFR (Non-African American) 45.5 ml/min; Potassium 3.9 mmol/L (3.5-5.1)
[2021-11-13] MEDS ORDERED: dexAMETHasone 10 MG in SYRINGE 0 ML IV SCH (08:00)
[2021-11-13] MEDS: ASCORBIC ACID 500 MG TAB PO SCH ×2 (08:26→17:47)
[2021-11-13] MEDS: ASPIRIN 81 MG ECTAB PO SCH ×2 (08:27→22:06)
[2021-11-13] MEDS: DOCUSATE SODIUM 100 MG CAP PO SCH ×2 (08:27→22:07)
[2021-11-13] MEDS: PANTOprazole 40 MG TAB PO SCH (08:27)
[2021-11-13] MEDS: CYANOCOBALAMIN (B-12) 500 MCG TABLET PO SCH (08:28)
[2021-11-13] MEDS: amLODIPine BESYLATE 5 MG TAB PO SCH (08:28)
[2021-11-13] MEDS: MULTIVITAMIN TAB PO SCH (08:28)
[2021-11-13] MEDS: CHOLECALCIFEROL 1,000 UNITS 25 MCG TAB PO SCH (08:29)
[2021-11-13] MEDS: SPIRONOLACTONE 25 MG TAB PO SCH (08:29)
[2021-11-13] MEDS: CALCIUM 600MG + VIT D 400 IU TAB PO SCH (08:30)
[2021-11-13] MEDS: FERROUS SULFATE 325 MG TAB PO SCH (08:30)
[2021-11-13] MEDS: TELMISARTAN 40 MG TAB PO SCH (08:30)
[2021-11-13] MEDS: METOPROLOL SUCC 50MG EXT REL TAB PO SCH (08:30)
[2021-11-13] MEDS: hydroCHLOROthiazide 25 MG TAB PO SCH (08:30)
[2021-11-13] MEDS: HEPARIN 100 UNIT/ML 5ML FLUSH FLUSH PRN (09:28)
[2021-11-13] MEDS: ONDANSETRON INJ 2 MG/ML 2 ML VIAL IV PRN (11:16)
--- NOTE | 2021-11-13 11:36 | Progress Notes ---
DATE OF SERVICE: 11/13/2021 SUBJECTIVE: An 81-year-old white female now postop day 1 from right knee replacement. She is doing well. She is having quite a bit more pain than she had last evening, but the pain medicine is workin g. No chest pain or shortness of breath. Not feeling dizzy or lightheaded. OBJECTIVE: VITAL SIGNS: Temperature 36.6. Vital signs are stable. PHYSICAL EXAMINATION: GENERAL: Shows a pleasant, elderly female. She is sitting up in bed and looks pretty comfortable. LUNGS: Clear to auscultation. HEART: Regular rate and rhythm. ABDOMEN: Soft, nontender, nondistended. EXTREMITIES: Grossly neurovascularly intact except as follows: Examination of the right leg reveals the dressing to be clean, dry and intact. The leg is well aligned. She can dorsiflex and plantarfl ex her foot appropriately. She is neurologically intact. LABORATORY DATA: Hemoglobin 10.2. Hematocrit 30.8. Electrolytes are stable. ASSESSMENT: An 81-year-old white female postoperative day 1 from right knee replacement, doing reaso nably well. Pain is controlled. She is hoping to go to rehabilitation. PLAN: 1. DVT prophylaxis includes thigh-high TEDs, SCDs, and aspirin twice a day. 2. PT, OT, weightbear as tolerated. Right total knee protocol. 3. Pain control, doing okay with current pain regimen. 4. Disposition: Plan to discharge to a rehab if she qualifies and accepted. Social service is work ing on this. Job ID: [id number]
[2021-11-13] MEDS: SENNA 8.6 MG TAB PO SCH (22:06)
[2021-11-14] MEDS: KETOROLAC TROMETHAMINE 15 MG/ML VIAL IV SCH ×2 (00:26→06:09)
[2021-11-14] MEDS: ACETAMINOPHEN 500 MG TAB PO SCH ×3 (06:09→21:16)
--- NOTE | 2021-11-14 08:11 | Progress Notes ---
DATE OF SERVICE: 11/14/2021. SUBJECTIVE: An 81-year-old white female postoperative day 2 from a right knee replacement. She is d oing okay. Some pain, but controlled with meds. No chest pain or shortness of breath. Not feeling dizzy or lightheaded. Just ready for placement. OBJECTIVE: VITAL SIGNS: Temperature 36.3. Vital signs stable. GENERAL: Physical examination shows a pleasant, elderly female. She is lying in bed this morning an d looks pretty comfortable. EXTREMITIES: Examination of the right leg reveals the dressing to be clean, dry, and intact. She is neurologically intact. She can dorsiflex and plantarflex her foot appropriately. LABORATORY DATA: None. ASSESSMENT: An 81-year-old white female postoperative day 1 from right knee replacement, doing prett y well. Pain is controlled. She is neurologically intact. PLAN: 1. DVT prophylaxis includes thigh-high TEDs, SCDs, and aspirin twice a day. 2. PT, OT, weightbear as tolerated. Right total knee protocol. 3. Pain control, doing okay with current pain medicine. 4. Disposition: Plan to discharge to a rehab or long-term facility. Just waiting for [facility]. Job ID: [id number]
[2021-11-14] MEDS: TELMISARTAN 40 MG TAB PO SCH (09:16)
[2021-11-14] MEDS: METOPROLOL SUCC 50MG EXT REL TAB PO SCH (09:17)
[2021-11-14] MEDS: PANTOprazole 40 MG TAB PO SCH (09:17)
[2021-11-14] MEDS: hydroCHLOROthiazide 25 MG TAB PO SCH (09:17)
[2021-11-14] MEDS: amLODIPine BESYLATE 5 MG TAB PO SCH (09:17)
[2021-11-14] MEDS: DOCUSATE SODIUM 100 MG CAP PO SCH ×2 (09:17→20:50)
[2021-11-14] MEDS: ASPIRIN 81 MG ECTAB PO SCH ×2 (09:17→20:51)
[2021-11-14] MEDS: CYANOCOBALAMIN (B-12) 500 MCG TABLET PO SCH (09:17)
[2021-11-14] MEDS: oxyCODONE HCL IR 5 MG TAB (IMMEDIATE RELEASE) PO PRN ×2 (09:23→14:29)
[2021-11-14] MEDS: ASCORBIC ACID 500 MG TAB PO SCH ×2 (09:26→18:12)
[2021-11-14] MEDS: CALCIUM 600MG + VIT D 400 IU TAB PO SCH (09:27)
[2021-11-14] MEDS: SPIRONOLACTONE 25 MG TAB PO SCH (09:27)
[2021-11-14] MEDS: FERROUS SULFATE 325 MG TAB PO SCH (09:27)
[2021-11-14] MEDS: MULTIVITAMIN TAB PO SCH (09:27)
[2021-11-14] MEDS: CHOLECALCIFEROL 1,000 UNITS 25 MCG TAB PO SCH (09:27)
[2021-11-14] MEDS: SENNA 8.6 MG TAB PO SCH (20:51)
[2021-11-15] MEDS: oxyCODONE HCL IR 5 MG TAB (IMMEDIATE RELEASE) PO PRN (05:56)
[2021-11-15] MEDS: ACETAMINOPHEN 500 MG TAB PO SCH ×2 (05:57→13:34)
[2021-11-15] MEDS: CYANOCOBALAMIN (B-12) 500 MCG TABLET PO SCH (07:58)
[2021-11-15] MEDS: ASCORBIC ACID 500 MG TAB PO SCH (07:59)
[2021-11-15] MEDS: hydroCHLOROthiazide 25 MG TAB PO SCH (07:59)
[2021-11-15] MEDS: FERROUS SULFATE 325 MG TAB PO SCH (07:59)
[2021-11-15] MEDS: CHOLECALCIFEROL 1,000 UNITS 25 MCG TAB PO SCH (07:59)
[2021-11-15] MEDS: CALCIUM 600MG + VIT D 400 IU TAB PO SCH (07:59)
[2021-11-15] MEDS: ASPIRIN 81 MG ECTAB PO SCH (07:59)
[2021-11-15] MEDS: PANTOprazole 40 MG TAB PO SCH (08:00)
[2021-11-15] MEDS: MULTIVITAMIN TAB PO SCH (08:00)
[2021-11-15] MEDS: METOPROLOL SUCC 50MG EXT REL TAB PO SCH (08:00)
[2021-11-15] MEDS: amLODIPine BESYLATE 5 MG TAB PO SCH (08:00)
[2021-11-15] MEDS: TELMISARTAN 40 MG TAB PO SCH (08:01)
[2021-11-15] MEDS: DOCUSATE SODIUM 100 MG CAP PO SCH (08:01)
[2021-11-15] MEDS: SPIRONOLACTONE 25 MG TAB PO SCH (08:01)
[2021-11-15] MEDS: ONDANSETRON INJ 2 MG/ML 2 ML VIAL IV PRN (08:03)
--- NOTE | 2021-11-15 14:37 | Progress Notes ---
DATE OF SERVICE: 11/15/2021. SUBJECTIVE: An 81-year-old female postop day 3 from a right knee replacement. She is doing pretty w ell. Pain is better today. She just waiting for placement. Apparently, going to . PHYSICAL EXAMINATION: GENERAL: Examination reveals a pleasant, elderly female, sitting up in bed, looks comfortable. EXTREMITIES: Examination of the right leg reveals the dressing to be in place. A little bit of bloo dy drainage in the front. She can dorsiflex and plantarflex her foot appropriately. She is neurolog ically intact. ASSESSMENT: An 81-year-old female postoperative day #3 from right knee replacement, doing pretty wel l. Pain is controlled. She is neurologically intact. PLAN: 1. DVT prophylaxis includes thigh-high TEDs, SCDs, and aspirin twice a day. 2. PT, OT, weightbear as tolerated. Right total knee protocol. 3. Pain control, doing okay with current pain regimen. 4. Disposition: Plan to discharge to later today. Job ID: [id number]
[2021-11-15] MEDS: HEPARIN 100 UNIT/ML 5ML FLUSH FLUSH PRN (16:00)
== END 2021-11-15 16:39 ==
LOC: 3E 06:43 → ASU 06:43

== ENCOUNTER 2025-04-12 15:14 | Observation (INO) ==
[2025-04-12] MEDS: ONDANSETRON INJ 2 MG/ML 2 ML VIAL IV STA ×2 (15:56→16:48)
[2025-04-12] MEDS: SODIUM CHLORIDE 0.9% 1,000 ML IV STA (16:48)
[2025-04-12] MEDS: MoRPHine SULFATE 4 MG/ML 1 ML CARP\\VIAL IV STA (16:48)
[2025-04-12 16:56] LABS: Hematocrit (blood only) 45.2 % (37.0-47.0); Hemoglobin 14.9 g/dL (12.0-16.0); Mean Corpuscular Hemoglobin 30.0 pg (25.0-34.0); Mean Corpuscular Volume 90.9 fL (80.0-100.0); Platelet Count 157 K/uL (130-400); RDW Standard Deviation 42.4 fL (36.4-46.3); Red Blood Count 4.97 M/uL (4.20-5.40); White Blood Count 10.43 K/ul (4.8-10.8)
[2025-04-12 17:13] LABS: Alanine Aminotransferase 9 U/L (7-52); Albumin Globulin Ratio 1.7 (0.9-2); Albumin Level 4.0 gm/dl (3.4-5.0); Alkaline Phosphatase 98 U/L (34-104); Anion Gap 9 (3-11); Bilirubin,Total 1.4 mg/dl (0.2-1.0); Blood Urea Nitrogen 11 mg/dl (6-23); Calcium 9.0 mg/dl (8.6-10.3); Carbon Dioxide 23 mmol/L (21-32); Chloride 106 mmol/L (98-107); Globulin 2.4 gm/dl (2.5-4.0); Glucose 118 mg/dl (70-99(Fasting)); Lipase 3 U/L (11-82); Potassium 3.9 mmol/L (3.5-5.1); Sodium 138 mmol/L (136-145); Total Protein 6.4 gm/dl (6.0-8.3)
[2025-04-12 17:18] LABS: Immature Granulocytes # (auto) 0.03 K/uL (0.01-0.20); Immature Granulocytes % (auto) 0.3 %; Ovalocytes 1+; Toxic Vacuolation 1+
--- NOTE | 2025-04-12 17:55 | Emergency Department Note ---
Impression & Plan Acute calculous cholecystitis ED Provider Note CHIEF COMPLAINT: Abdominal pain HISTORY OF PRESENTING ILLNESS: The patient is an 85-year-old female who arrives to the emergency department for evaluation of right upper quadrant abdominal pain. Patient does report a history of previous issues with her gallbladder. She states pain began while she was sitting at home. She states it occurred approximately at noon today. She states pain did occur after eating. She reports no fever. She states she has had nausea, and vomiting. She reports no chest pain, or shortness of breath. She has slight hypertension, and tachycardia upon arrival, however otherwise stable vital signs. REVIEW OF SYSTEMS: See HPI for pertinent positives and pertinent negatives. ALLERGIES: See below MEDICATIONS: See below PAST MEDICAL HISTORY: See below PHYSICAL EXAM: VITALS: Vitals are noted on the nurse's note and reviewed by myself. Hypertension, tachycardia. GENERAL: 85-year-old female, in no acute distress, nondiaphoretic, well- developed well-nourished. SKIN: The skin was without rashes, erythema, edema, or bruising. HEAD: Normocephalic atraumatic. NECK: Supple without nuchal rigidity. No lymphadenopathy. Cervical spine is nontender. No JVD. HEART: Tachycardia with regular rhythm without murmurs gallops or rubs. LUNGS: Clear to auscultation bilaterally without wheezes, rales or rhonchi. No retractions or accessory muscle use. ABDOMEN: Positive bowel sounds x 4. Soft, tender to palpation epigastrium, right upper quadrant. MUSCULOSKELETAL: No muscle atrophy, erythema, or edema noted. Normal gait. Strength 5/5 throughout. NEURO: Patient was alert and oriented to person place and time. No focal neurological deficits. DIFFERENTIAL DIAGNOSIS: Infections, diverticulitis, UTI, obstruction, mesenteric ischemia, aortic pathology, inflammatory bowel disease, renal colic, PUD, pancreatitis, biliary pathology, hernia, volvulus, constipation, as well as other pathologies. ED COURSE AND MEDICAL DECISION MAKING: HISTORY FROM INDEPENDENT HISTORIAN: at bedside serving as secondary historian. MEDICATIONS GIVEN: 1 L NSS bolus, 4 mg IV Zofran, 4 mg IV morphine, IV cefazolin MONITOR: Continuous manager monitoring: Order was placed for continuous manager monitoring. Patient was placed on the manager monitoring and continuous pulse ox. Patient was noted to be in normal sinus rhythm at an initial rate of 95 bpm per my interpretation. INTERPRETATION OF LABS: I interpreted the labs with full lab results as below in the lab section of this note. Pertinent lab results discussed in the MDM section below. INTERPRETATION OF IMAGING: Imaging studies were interpreted by myself and read by radiology as per the imaging section of this note. MDM SUMMARY: The patient is a 85-year-old female who arrives to the emergency department for evaluation of the above-stated complaint. Saline lock was established, lab work was obtained. CBC shows no leukocytosis, no anemia. CMP is unremarkable, total bili 1.4, no transaminitis. Lipase negative. Urinalysis shows trace ketones, with no concerning signs of infection. CT imaging of the abdomen and pelvis with IV contrast was obtained which per my interpretation shows findings consistent with acute cholecystitis. Ultrasound imaging of the right upper quadrant was obtained, which shows multiple gallstones, with mildly thickened gallbladder wall measuring at 4 mm, which appears edematous. Mckeon sign was positive. There is no intrahepatic or extrahepatic bile duct dilatation, and the CBD measures 5 mm. Findings are consistent as well with acute cholecystitis. Patient was provided IV fluids, IV Zofran, and IV morphine. Dr. Spears from general surgery was consulted. IV antibiotics were administered. Patient will be admitted to the [facility], for medical management until the following day when surgery will be performed. I spoke with the patient regarding the plan of care, which she was agreeable to. Patient was admitted to Dr Urbina. Please refer to his documentation for further patient workup and care. DIAGNOSIS: Acute calculous cholecystitis The patient's case was discussed with Dr. Lutz, who agreed with my evaluation and treatment plan. The chart was completed utilizing [employer] Speech voice recognition software. Grammatical errors, random word insertions, pronoun errors, and incomplete sentences are an occasional consequence of this system due to software limitations, ambient noise, and hardware issues. Any formal questions or concerns about the content, text, or information contained within the body of this dictation should be directly addressed to the provider for clarification. Past Med/Surg History Problem List (Updated 04/12/25 @ 21:49 by BALJIT Vargas) Acute calculous cholecystitis (Acute) Cancer associated pain Multiple myeloma Prediabetes Osteoporosis GERD with esophagitis Vitamin B12 deficiency (Chronic) Fatigue Dyslipidemia (Chronic) Hypertension (Acute) ongoing monitoring with electrophysiology Sleep apnea (Acute) uses oxygen at night @ 2 LPM - unable to tolerate CPAP Medical History Esophageal dysphagia Pulmonary nodule Malignant neoplasm of breast metastatic to bone T12 vertebral fracture (~12/16/23) large osteolytic lesion in the body of T12-per the pet scan Back pain of thoracolumbar region Sciatica Ectopic atrial rhythm CLAIRE (dyspnea on exertion) walking up hill or 1 FOS ongoing x 10 yrs, denies change or worsening Bilateral primary osteoarthritis of knee Anemia Osteoarthritis of knees, bilateral Chronic back pain CLAIRE (dyspnea on exertion) Chronic back pain Limb alert care status right arm Port-A-Cath in place Left chest Breast cancer (~10/2005) 2005; Rt mastectomy + chemo 2006-limb restriction Surgical History Status post total right knee replacement History of oral surgery History of knee replacement Right History of bone marrow biopsy (12/26/23) History of esophagogastroduodenoscopy (EGD) History of cataract surgery BL History of dilation and curettage Nausea and vomiting after administration of anesthetic agent Hx of colonoscopy Hx of foot surgery left Hx of appendectomy H/O mastectomy right-limb restriction Family History Father , Passed age 55 Multiple myeloma Chemotherapy Mother Lung disease Sister Breast cancer, Onset Age: 74 Masectomy Son No problems noted. Other No family history of adverse response to anesthesia Denies family history of Ovarian cancer Prostate cancer Myocardial infarction Lung cancer Colorectal cancer Social History Smoking Status: Current some day smoker Tobacco Type: Cigarettes Age Started Using Tobacco: 16; Age Quit Using Tobacco: 30; packs per day: 0.25; Second Hand Exposure: Yes (hx growing up); Do You Dip or Chew Tobacco: No; Hx Alcohol Use: Yes Alcohol type: wine Alcohol Intake Frequency: Monthly or Less Alcohol Intake Frequency Comment: socially Hx Substance Use: No Preferred Language: [place] Rican Communication Ability: Effective Visual Impairment: Limited Hearing Ability: Normal 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: No Beliefs That Will Affect Care: None marital status: Current Living Situation: Spouse current occupational status: retired current occupation: Retired from [employer] How many Children do You have: 1 Feels Safe at Home: Yes Childhood Exposure to Second-Hand Smoke: Yes Diet: regular caffeine: Yes Dental Care, Regularly: Yes Physical Activity Frequency: Does not Exercise Seatbelt Use: always Sunscreen Use: Yes Assistive Devices: Contacts Allergies Allergies Allergy/AdvReac Type Severity Reaction Status Date / Time No Known Allergies Allergy Verified 03/14/25 14:32 Home Meds Home Medications Medication Instructions Recorded Confirmed calcium 600 mg (as carbonate)-vit 1 tab PO QAM 11/12/18 03/14/25 D3 20 mcg (800 unit) chewable tablet (Caltrate plus D) acyclovir 400 mg tablet 400 mg PO QAM 05/13/24 03/14/25 oxycodone 20 mg tablet 20 mg PO Q4H PRN Pain 05/13/24 03/14/25 sennosides 8.6 mg tablet (senna) 8.6 mg PO QPM 05/13/24 03/14/25 ondansetron 8 mg disintegrating 8 mg PO TID PRN Nausea 07/29/24 03/14/25 tablet oxycodone 20 mg tablet,crush 40 mg PO Q12H 07/29/24 03/14/25 resistant,extended release 12 hr (OxyContin) dexamethasone 4 mg tablet See Rx Instructions .Route .COMPLEX 01/25/25 03/14/25 methylphenidate HCl 10 mg tablet 10 mg PO BID 01/25/25 03/14/25 Previous Rx's Medication Instructions Recorded amlodipine 5 mg tablet 5 mg PO QAM #90 tabs 01/25/25 atorvastatin 10 mg tablet 10 mg PO QAM #90 tabs 01/25/25 lidocaine 5 % topical patch 1 patch topical DAILY PRN pain #15 01/25/25 ea pantoprazole 40 mg tablet,delayed 40 mg PO QAM PRN acid reflux #90 01/25/25 release tabs albuterol sulfate 90 mcg/actuation 2 puff inhalation Q6H PRN SOB #8.5 03/14/25 aerosol inhaler grams Results & Data (ED) Vital Signs Vital Signs - 24 hr 04/12/25 15:14 04/12/25 16:42 04/12/25 16:45 Temperature 36.6 C Temperature Source Temporal Artery Scan Pulse Rate 95 H 88 91 H Pulse Rate from SpO2 Sensor 89 Respiratory Rate 18 21 Blood Pressure 170/99 H 163/75 H Blood Pressure Mean 122 104 Pulse Oximetry 98 95 Oxygen Delivery Method Room Air Room Air Sepsis Recent Fever Within 48 Hours No Sepsis New/Unexplained Change in Mental Status N/A Sepsis Action Taken by Nursing No Action Required 04/12/25 18:51 04/12/25 19:42 04/12/25 20:00 Temperature Temperature Source Pulse Rate 89 89 91 H Pulse Rate from SpO2 Sensor 85 Respiratory Rate 24 20 20 Blood Pressure 199/96 H 148/84 H 166/86 H Blood Pressure Mean 130 105 112 Pulse Oximetry 97 95 96 Oxygen Delivery Method Room Air Sepsis Recent Fever Within 48 Hours Sepsis New/Unexplained Change in Mental Status Sepsis Action Taken by Nursing 04/12/25 20:35 04/12/25 21:00 Temperature Temperature Source Pulse Rate 90 95 H Pulse Rate from SpO2 Sensor Respiratory Rate 22 Blood Pressure 169/103 H Blood Pressure Mean 125 Pulse Oximetry 96 Oxygen Delivery Method Sepsis Recent Fever Within 48 Hours Sepsis New/Unexplained Change in Mental Status Sepsis Action Taken by Detention Medications Current Medication List: was personally reviewed by nm Laboratory Data Attestation: I reviewed the patient's lab results. 04/12/25 16:37 04/12/25 16:37 Lab Results 04/12/25 04/12/25 Range/Units 16:37 20:05 WBC 10.43 (4.8-10.8) K/ul RBC 4.97 (4.20-5.40) M/uL Hgb 14.9 (12.0-16.0) g/dL Hct 45.2 (37.0-47.0) % MCV 90.9 (80.0-100.0) fL MCH 30.0 (25.0-34.0) pg MCHC 33.0 (32.0-36.0) g/dL RDW Std Deviation 42.4 (36.4-46.3) fL RDW Coeff of Shana 12.8 (11.5-14.5) % Plt Count 157 (130-400) K/uL MPV 9.1 L (9.4-12.4) fL Immature Gran % (Auto) 0.3 % Neut % (Auto) 95.2 % Lymph % (Auto) 2.3 % [place] % (Auto) 2.0 % Eos % (Auto) 0.0 % Baso % (Auto) 0.2 % Neut # (Auto) 9.93 H (1.40-6.50) K/uL Lymph # (Auto) 0.24 L (1.20-3.40) K/uL [place] # (Auto) 0.21 (0.11-0.59) K/uL Eos # (Auto) 0.00 (0.00-0.50) K/uL Baso # (Auto) 0.02 (0.00-0.20) K/uL Immature Gran # (Auto) 0.03 (0.01-0.20) K/uL Toxic Vacuolation 1+ Ovalocytes 1+ Sodium 138 (136-145) mmol/L Potassium 3.9 (3.5-5.1) mmol/L Chloride 106 (98-107) mmol/L Carbon Dioxide 23 (21-32) mmol/L Anion Gap 9 (3-11) BUN 11 (6-23) mg/dl Creatinine 0.65 (0.6-1.2) mg/dl Est Cr Clr Drug Dosing Not Reportable eGFR 86.23 BUN/Creatinine Ratio 16.9 (10-20) Glucose 118 H (70-99(Fasting)) mg/dl Calcium 9.0 (8.6-10.3) mg/dl Total Bilirubin 1.4 H (0.2-1.0) mg/dl AST 19 (13-39) U/L ALT 9 (7-52) U/L Alkaline Phosphatase 98 (34-104) U/L Total Protein 6.4 (6.0-8.3) gm/dl Albumin 4.0 (3.4-5.0) gm/dl Globulin 2.4 L (2.5-4.0) gm/dl Albumin/Globulin Ratio 1.7 (0.9-2) Lipase 3 L (11-82) U/L Urine Color Yellow Urine Appearance Clear (Clear) Urine pH 7.5 (4.5-7.5) Ur Specific [place] 1.018 (1.000-1.030) Urine Protein Negative (Negative) Urine Glucose (UA) Negative (Negative) Urine Ketones Trace H (Negative) Urine Blood Negative (Negative) Urine Nitrite Negative (Negative) Urine Bilirubin Negative (Negative) Urine Urobilinogen Negative (Negative) Ur Leukocyte Esterase Negative (Negative) Urine Comment Administered Medications Discontinued Medications Sodium Chloride (Nss) 1,000 mls @ 999 mls/hr IV .Q1H1M STA Stop: 04/12/25 17:36 Last Infusion: 04/12/25 17:53 Dose: Infused Documented By: Admin: 04/12/25 16:48 Dose: 999 mls/hr Documented By: SUSAN Ioversol (Optiray 320 100ml) 93 ml IV ONCE ONE Stop: 04/12/25 19:11 Last Admin: 04/12/25 19:10 Dose: 93 ml Documented By: MARSHA Morphine Sulfate (Morphine Sulfate 4 Mg/Ml 1 Ml Carp\Vial) 4 mg IV NOW STA Stop: 04/12/25 16:37 Last Admin: 04/12/25 16:48 Dose: 4 mg Documented By: SUSAN Ondansetron HCl (Ondansetron Inj 2 Mg/Ml 2 Ml Vial) 4 mg IV NOW STA Stop: 04/12/25 15:44 Last Admin: 04/12/25 15:56 Dose: 4 mg Documented By: QGV Ondansetron HCl (Ondansetron Inj 2 Mg/Ml 2 Ml Vial) 4 mg IV NOW STA Stop: 04/12/25 16:37 Last Admin: 04/12/25 16:48 Dose: 4 mg Documented By: SUSAN Imaging Data Attestation: I personally reviewed and interpreted this imaging study as follows: Radiologist's Impression: Gallbladder Ultrasound 04/12/25 15:31 Clinical history: Abdominal pain Technique: Sonography was performed of the right upper quadrant of the abdomen Findings: There is no sign of cirrhosis or significant fatty infiltration. No definite liver mass is seen There are multiple gallstones. The gallbladder wall is mildly thickened at 4 mm and appears edematous. Overlying tenderness was detected. There is no intrahepatic or extrahepatic bile duct dilatation. The common bile duct measures 5 mm The right kidney measures 9.9 cm in length. There is no hydronephrosis. No definite renal calculus or mass is seen The visualized pancreas, aorta, and IVC appear unremarkable. No ascites is seen Impression: Acute cholecystitis ACT 112: Positive. There are findings on this exam that require communication between the performing entity and the patient following Patient Test Result Information Act ([place] ACT 112) guidelines. Electronically signed by Billy Samuel 04-12-2025 7:51 PM Abdomen/Pelvis CT 04/12/25 16:38 CT of the abdomen pelvis with contrast Technique: Postcontrast axial images abdomen pelvis. Coronal and sagittal reformatted images made available for review comparison is made to prior exam dated 04/20/2024 Findings: Lung bases are clear Gallbladder is thick-walled with mild pericholecystic fluid. Solid abdominal organs are unremarkable in appearance. No free air or intestinal obstruction. Reactive wall thickening involving a loop of transverse colon immediately adjacent to the thick-walled inflamed gallbladder which is distended. Diverticulosis evidence of diverticulitis. Moderate amount of stool within the colon. Bone windows demonstrate no focal abnormality. Stable lytic lesion involving much of T12 with extension across the posterior cortex. Impression: Findings consistent with acute cholecystitis Electronically signed by Deejay Jones 04-12-2025 8:32 PM Discharge Plan Visit Data Chief Complaint: Illness Stated Complaint: ILLNESS, GALLBLADDER, VOMITING 0.5 HR AGO, ABD PN ED Provider: Natan Lutz ED Midlevel Provider: Albina Espana Discharge Problem: Acute calculous cholecystitis Patient Disposition: Admitted As Inpatient Condition: Fair Forms Stand Alone Forms: [facility] [place] [employer] Prescriptions Prescriptions: No Action oxycodone 20 mg tablet 20 mg PO Q4H PRN (Reason: Pain) acyclovir 400 mg tablet 400 mg PO QAM sennosides [senna] 8.6 mg tablet 8.6 mg PO QPM Caltrate 600 plus D 600 mg (1,500 mg)-800 unit tablet,chewable 1 tab PO QAM methylphenidate HCl 10 mg tablet 10 mg PO BID dexamethasone 4 mg tablet See Rx Instructions .ROUTE .COMPLEX Rx Instructions: 8 mg weekly, 20 mg pretreatment with each cycle of daratumumab pantoprazole 40 mg tablet,delayed release (DR/EC) 40 mg PO QAM PRN (Reason: acid reflux) Qty: 90 3RF lidocaine 5 % adhesive patch,medicated 1 patch TOP DAILY PRN (Reason: pain) Qty: 15 5RF Rx Instructions: leave on most painful area for 12 hrs amlodipine 5 mg tablet 5 mg PO QAM Qty: 90 3RF atorvastatin 10 mg tablet 10 mg PO QAM Qty: 90 3RF albuterol sulfate 90 mcg/actuation HFA aerosol inhaler 2 puff INHALATION Q6H PRN (Reason: SOB) Qty: 8.5 1RF ondansetron 8 mg tablet,disintegrating 8 mg PO TID PRN (Reason: Nausea) oxycodone [OxyContin] 20 mg tablet,oral only,ext.rel.12 hr 40 mg PO Q12H Referrals Referrals: Cristina Gonsalves MD [Primary Care Provider] -
[2025-04-12] MEDS: OPTIRAY 320 100ml IV ONE (19:10)
--- NOTE | 2025-04-12 19:51 | Ultrasound Report ---
Clinical history: Abdominal pain Technique: Sonography was performed of the right upper quadrant of the abdomen Findings: There is no sign of cirrhosis or significant fatty infiltration. No definite liver mass is seen There are multiple gallstones. The gallbladder wall is mildly thickened at 4 mm and appears edematous. Overlying tenderness was detected. There is no intrahepatic or extrahepatic bile duct dilatation. The common bile duct measures 5 mm The right kidney measures 9.9 cm in length. There is no hydronephrosis. No definite renal calculus or mass is seen The visualized pancreas, aorta, and IVC appear unremarkable. No ascites is seen Impression: Acute cholecystitis ACT 112: Positive. There are findings on this exam that require communication between the performing entity and the patient following Patient Test Result Information Act ([place] ACT 112) guidelines. Electronically signed by Billy Samuel 04-12-2025 7:51 PM
[2025-04-12 20:22] LABS: Appearance Urine Clear (Clear); Glucose Urine UA Negative (Negative)
--- NOTE | 2025-04-12 20:32 | CT Scan Report ---
CT of the abdomen pelvis with contrast Technique: Postcontrast axial images abdomen pelvis. Coronal and sagittal reformatted images made available for review comparison is made to prior exam dated 04/20/2024 Findings: Lung bases are clear Gallbladder is thick-walled with mild pericholecystic fluid. Solid abdominal organs are unremarkable in appearance. No free air or intestinal obstruction. Reactive wall thickening involving a loop of transverse colon immediately adjacent to the thick-walled inflamed gallbladder which is distended. Diverticulosis evidence of diverticulitis. Moderate amount of stool within the colon. Bone windows demonstrate no focal abnormality. Stable lytic lesion involving much of T12 with extension across the posterior cortex. Impression: Findings consistent with acute cholecystitis Electronically signed by Deejay Jones 04-12-2025 8:32 PM
--- NOTE | 2025-04-12 20:58 | Emergency Department Note ---
ED Visit Note I was consulted by the Advanced Practice Provider, BALJIT Casarez. I personally made/approved the management plan and take responsibility for the patient management. I performed a substantive portion of the visit. This includes the aspects of: -History/Physical/Personally seeing the patient -MDM .
[2025-04-12] MEDS ORDERED: HYDROmorphone INJ 0.5 MG/0.5 ML SYR IV PRN (21:25)
[2025-04-12] MEDS ORDERED: NALOXONE HCL 0.4 MG/1 ML VIAL/CARP IV PRN (21:28)
--- NOTE | 2025-04-12 21:40 | History & Physical Report ---
Date of Service April 12, 2025 Assessment & Plan (1) Acute calculous cholecystitis: (2) Cancer associated pain: (3) Multiple myeloma: Plan The patient is an 85-year-old female with past medical history including multiple myeloma, cancer associated pain, GERD with esophagitis, prediabetes, osteoporosis, vitamin B12 deficiency, dyslipidemia, history of breast cancer 2005, hypertension, and sleep apnea. She presents to the emergency department with the acute onset of severe right upper quadrant abdominal pain that began around noon today, after eating lunch. She had some associated nausea and vomiting, but denied fevers or chills. In the emergency department workup included a gallbladder ultrasound and CT of abdomen and pelvis which were consistent with acute cholecystitis. LFTs were not significantly elevated except for a total bilirubin of 1.4. WBC was borderline 10.43. From the ED patient received the following: Ancef 3 g IV, Zofran 4 mg IV x 2, morphine sulfate 4 mg IV, and normal saline 1 L bolus. General surgery has been consulted, and also saw the patient while in the ED. Should be admitted to the hospitalist service with a general surgery consult. #Acute calculous cholecystitis/severe abdominal pain- NPO except essential medications Pain is unrelieved by morphine 4 mg IV Acetaminophen 1 g IV every 8 hours as needed for mild pain or fever Dilaudid 0.25 mg IV every 3 hours as needed for moderate pain Dilaudid 0.5 mg IV every 3 hours needed for severe pain Narcan IV per protocol Pantoprazole 40 mg IV now and every morning Ceftriaxone 2 g IV daily Compazine 10 mg IV every 6 hours as needed NSS + KCl 20 mEq at 100 mL/h x 2 L Consult general surgery #Chronic cancer pain- Outpatient regimen of OxyContin 40 mg p.o. every 12 hours, and oxycodone 20 mg p.o. every 4 hours as needed breakthrough pain, will be resumed when no longer NPO. #Multiple myeloma- Continue acyclovir prophylaxis Hold methylphenidate but may need to be resumed early on. #Hypertension- Hold amlodipine Hydralazine 10 mg IV every 4 hours. Systolic blood pressure greater than 160 #Hyperlipidemia- Resume atorvastatin after taking oral again #GERD with esophagitis- Oral pantoprazole IV replaced by IV pantoprazole while in hospital #Sleep apnea/asthma- Nasal cannula as needed at that time Continue albuterol HFA 2 puffs every 6 hours as needed History of Present Illness Primary Care Provider: Cristina Gonsalves MD The patient is an 85-year-old female with past medical history including multiple myeloma, cancer associated pain, GERD with esophagitis, prediabetes, osteoporosis, vitamin B12 deficiency, dyslipidemia, history of breast cancer 2005, hypertension, and sleep apnea. She presents to the emergency department with the acute onset of severe right upper quadrant abdominal pain that began around noon today, after eating lunch. She had some associated nausea and vomiting, but denied fevers or chills. In the emergency department workup included a gallbladder ultrasound and CT of abdomen and pelvis which were consistent with acute cholecystitis. LFTs were not significantly elevated except for a total bilirubin of 1.4. WBC was borderline 10.43. From the ED patient received the following: Ancef 3 g IV, Zofran 4 mg IV x 2, morphine sulfate 4 mg IV, and normal saline 1 L bolus. General surgery has been consulted, and also saw the patient while in the ED. Should be admitted to the hospitalist service with a general surgery consult. Allergies Allergy/AdvReac Type Severity Reaction Status Date / Time No Known Allergies Allergy Verified 03/14/25 14:32 Home Medications Medication Instructions Recorded Confirmed Type calcium 600 mg (as carbonate)-vit 1 tab PO QAM 11/12/18 03/14/25 History D3 20 mcg (800 unit) chewable tablet (Caltrate plus D) acyclovir 400 mg tablet 400 mg PO QAM 05/13/24 03/14/25 History oxycodone 20 mg tablet 20 mg PO Q4H PRN Pain 05/13/24 03/14/25 History sennosides 8.6 mg tablet (senna) 8.6 mg PO QPM 05/13/24 03/14/25 History ondansetron 8 mg disintegrating 8 mg PO TID PRN Nausea 07/29/24 03/14/25 History tablet oxycodone 20 mg tablet,crush 40 mg PO Q12H 07/29/24 03/14/25 History resistant,extended release 12 hr (OxyContin) amlodipine 5 mg tablet 5 mg PO QAM #90 tabs 01/25/25 03/14/25 Rx atorvastatin 10 mg tablet 10 mg PO QAM #90 tabs 01/25/25 03/14/25 Rx dexamethasone 4 mg tablet See Rx Instructions .Route .COMPLEX 01/25/25 03/14/25 History lidocaine 5 % topical patch 1 patch topical DAILY PRN pain #15 01/25/25 03/14/25 Rx ea methylphenidate HCl 10 mg tablet 10 mg PO BID 01/25/25 03/14/25 History pantoprazole 40 mg tablet,delayed 40 mg PO QAM PRN acid reflux #90 01/25/25 03/14/25 Rx release tabs albuterol sulfate 90 mcg/actuation 2 puff inhalation Q6H PRN SOB #8.5 03/14/25 03/14/25 Rx aerosol inhaler grams Past Med/Surg History Problem List Acute calculous cholecystitis (Acute) Cancer associated pain Multiple myeloma Prediabetes Osteoporosis GERD with esophagitis Vitamin B12 deficiency (Chronic) Fatigue Dyslipidemia (Chronic) Hypertension (Acute) ongoing monitoring with electrophysiology Sleep apnea (Acute) uses oxygen at night @ 2 LPM - unable to tolerate CPAP Medical History Esophageal dysphagia Pulmonary nodule Malignant neoplasm of breast metastatic to bone T12 vertebral fracture (~12/16/23) large osteolytic lesion in the body of T12-per the pet scan Back pain of thoracolumbar region Sciatica Ectopic atrial rhythm CLAIRE (dyspnea on exertion) walking up hill or 1 FOS ongoing x 10 yrs, denies change or worsening Bilateral primary osteoarthritis of knee Anemia Osteoarthritis of knees, bilateral Chronic back pain CLAIRE (dyspnea on exertion) Chronic back pain Limb alert care status right arm Port-A-Cath in place Left chest Breast cancer (~10/2005) 2005; Rt mastectomy + chemo 2007-limb restriction Surgical History Status post total right knee replacement History of oral surgery History of knee replacement Right History of bone marrow biopsy (12/26/23) History of esophagogastroduodenoscopy (EGD) History of cataract surgery BL History of dilation and curettage Nausea and vomiting after administration of anesthetic agent Hx of colonoscopy Hx of foot surgery left Hx of appendectomy H/O mastectomy right-limb restriction Family History Father , Passed age 55 Multiple myeloma Chemotherapy Mother Lung disease Sister Breast cancer, Onset Age: 74 Masectomy Son No problems noted. Other No family history of adverse response to anesthesia Denies family history of Ovarian cancer Prostate cancer Myocardial infarction Lung cancer Colorectal cancer Social History Smoking Status: Former smoker Tobacco Type: Cigarettes Age Started Using Tobacco: 16; Age Quit Using Tobacco: 30; packs per day: 0.25; Second Hand Exposure: No; Do You Dip or Chew Tobacco: No; Hx Alcohol Use: No Hx Substance Use: No Preferred Language: Tamazight Communication Ability: Effective Visual Impairment: Limited Hearing Ability: Normal Transcribing Machine Operator Required: No Beliefs That Will Affect Care: None marital status: Current Living Situation: Spouse current occupational status: retired current occupation: Retired from [employer] How many Children do You have: 1 Feels Safe at Home: Yes Safety Concerns: Feels Safe At This Time Childhood Exposure to Second-Hand Smoke: Yes Diet: regular caffeine: Yes Dental Care, Regularly: Yes Physical Activity Frequency: Does not Exercise Seatbelt Use: always Sunscreen Use: Yes Assistive Devices: None Review of Systems Review of Systems: The patient denies chest pain, palpitations, shortness of breath, dyspnea on exertion, cough, lower extremity swelling, sore throat, fevers, chills, sweats, blood in urine or stool, dysuria, urinary frequency or urgency, lightheadedness, dizziness, headache, loss of consciousness, rash, abnormal bruising or bleeding, imbalance, focal or generalized weakness, numbness or tingling in arms or legs, generalized arthralgias or myalgias, neck pain, or night sweats. The review of systems is otherwise negative other than for that already noted above, and at least 10 systems have been reviewed. Physical Exam Physical Exam: The patient is awake, alert and oriented 3, well developed and well nourished, normocephalic and atraumatic, lying in bed and in no acute distress. HEENT--PERRL, EOMI, mucous membranes and oropharynx dry. Neck--supple. No JVD. No bruits. Thyroid normal, trachea midline, no adenopathy. Heart--normal S1 and S2. No murmurs, rubs or gallops. Lungs--clear bilaterally, no respiratory distress, no accessory muscle use. Abdomen--normal bowel sounds and soft. Tender right upper quadrant. Nondistended Extremities--no cyanosis or clubbing. No edema. Dermatologic--normal skin turgor, normal color, no abnormal lymph nodes, no rash. Neurologic--cranial nerves II through XII grossly intact. Rheumatologic--normal range of motion. Psychiatric--normal affect. Results & Data Results & Data Vital Signs (Past 12 Hours) Vital Signs Temp Pulse Resp BP Pulse Ox O2 Del Method 04/12/25 21:00 95 H 22 169/103 H 96 04/12/25 20:35 90 04/12/25 20:00 91 H 20 166/86 H 96 04/12/25 19:42 89 20 148/84 H 95 04/12/25 18:51 89 24 199/96 H 97 Room Air 04/12/25 16:45 91 H 04/12/25 16:42 88 21 163/75 H 95 Room Air 04/12/25 15:14 36.6 C 95 H 18 170/99 H 98 Room Air Laboratory Results Laboratory Results WBC 10.43 K/ul (4.8-10.8) 04/12/25 16:37 RBC 4.97 M/uL (4.20-5.40) 04/12/25 16:37 Hgb 14.9 g/dL (12.0-16.0) 04/12/25 16:37 Hct 45.2 % (37.0-47.0) 04/12/25 16:37 MCV 90.9 fL (80.0-100.0) 04/12/25 16:37 MCH 30.0 pg (25.0-34.0) 04/12/25 16:37 MCHC 33.0 g/dL (32.0-36.0) 04/12/25 16:37 RDW Std Deviation 42.4 fL (36.4-46.3) 04/12/25 16:37 RDW Coeff of Shana 12.8 % (11.5-14.5) 04/12/25 16:37 Plt Count 157 K/uL (130-400) 04/12/25 16:37 MPV 9.1 fL (9.4-12.4) L 04/12/25 16:37 Immature Gran % (Auto) 0.3 % 04/12/25 16:37 Neut % (Auto) 95.2 % 04/12/25 16:37 Lymph % (Auto) 2.3 % 04/12/25 16:37 [place] % (Auto) 2.0 % 04/12/25 16:37 Eos % (Auto) 0.0 % 04/12/25 16:37 Baso % (Auto) 0.2 % 04/12/25 16:37 Neut # (Auto) 9.93 K/uL (1.40-6.50) H 04/12/25 16:37 Lymph # (Auto) 0.24 K/uL (1.20-3.40) L 04/12/25 16:37 [place] # (Auto) 0.21 K/uL (0.11-0.59) 04/12/25 16:37 Eos # (Auto) 0.00 K/uL (0.00-0.50) 04/12/25 16:37 Baso # (Auto) 0.02 K/uL (0.00-0.20) 04/12/25 16:37 Immature Gran # (Auto) 0.03 K/uL (0.01-0.20) 04/12/25 16:37 Toxic Vacuolation 1+ 04/12/25 16:37 Ovalocytes 1+ 04/12/25 16:37 Sodium 138 mmol/L (136-145) 04/12/25 16:37 Potassium 3.9 mmol/L (3.5-5.1) 04/12/25 16:37 Chloride 106 mmol/L (98-107) 04/12/25 16:37 Carbon Dioxide 23 mmol/L (21-32) 04/12/25 16:37 Anion Gap 9 (3-11) 04/12/25 16:37 BUN 11 mg/dl (6-23) 04/12/25 16:37 Creatinine 0.65 mg/dl (0.6-1.2) 04/12/25 16:37 Est Cr Clr Drug Dosing Not Reportable 04/12/25 16:37 eGFR 86.23 04/12/25 16:37 BUN/Creatinine Ratio 16.9 (10-20) 04/12/25 16:37 Glucose 118 mg/dl (70-99(Fasting)) H 04/12/25 16:37 Calcium 9.0 mg/dl (8.6-10.3) 04/12/25 16:37 Total Bilirubin 1.4 mg/dl (0.2-1.0) H 04/12/25 16:37 AST 19 U/L (13-39) 04/12/25 16:37 ALT 9 U/L (7-52) 04/12/25 16:37 Alkaline Phosphatase 98 U/L (34-104) 04/12/25 16:37 Total Protein 6.4 gm/dl (6.0-8.3) 04/12/25 16:37 Albumin 4.0 gm/dl (3.4-5.0) 04/12/25 16:37 Globulin 2.4 gm/dl (2.5-4.0) L 04/12/25 16:37 Albumin/Globulin Ratio 1.7 (0.9-2) 04/12/25 16:37 Lipase 3 U/L (11-82) L 04/12/25 16:37 Urine Color Yellow 04/12/25 20:05 Urine Appearance Clear (Clear) 04/12/25 20:05 Urine pH 7.5 (4.5-7.5) 04/12/25 20:05 Ur Specific [place] 1.018 (1.000-1.030) 04/12/25 20:05 Urine Protein Negative (Negative) 04/12/25 20:05 Urine Glucose (UA) Negative (Negative) 04/12/25 20:05 Urine Ketones Trace (Negative) H 04/12/25 20:05 Urine Blood Negative (Negative) 04/12/25 20:05 Urine Nitrite Negative (Negative) 04/12/25 20:05 Urine Bilirubin Negative (Negative) 04/12/25 20:05 Urine Urobilinogen Negative (Negative) 04/12/25 20:05 Ur Leukocyte Esterase Negative (Negative) 04/12/25 20:05 Urine Comment 04/12/25 20:05 Impressions Gallbladder Ultrasound 04/12/25 15:31 Clinical history: Abdominal pain Technique: Sonography was performed of the right upper quadrant of the abdomen Findings: There is no sign of cirrhosis or significant fatty infiltration. No definite liver mass is seen There are multiple gallstones. The gallbladder wall is mildly thickened at 4 mm and appears edematous. Overlying tenderness was detected. There is no intrahepatic or extrahepatic bile duct dilatation. The common bile duct measures 5 mm The right kidney measures 9.9 cm in length. There is no hydronephrosis. No definite renal calculus or mass is seen The visualized pancreas, aorta, and IVC appear unremarkable. No ascites is seen Impression: Acute cholecystitis ACT 112: Positive. There are findings on this exam that require communication between the performing entity and the patient following Patient Test Result Information Act ([place] ACT 112) guidelines. Electronically signed by Billy Samuel 04-12-2025 7:51 PM Abdomen/Pelvis CT 04/12/25 16:38 CT of the abdomen pelvis with contrast Technique: Postcontrast axial images abdomen pelvis. Coronal and sagittal reformatted images made available for review comparison is made to prior exam dated 04/20/2024 Findings: Lung bases are clear Gallbladder is thick-walled with mild pericholecystic fluid. Solid abdominal organs are unremarkable in appearance. No free air or intestinal obstruction. Reactive wall thickening involving a loop of transverse colon immediately adjacent to the thick-walled inflamed gallbladder which is distended. Diverticulosis evidence of diverticulitis. Moderate amount of stool within the colon. Bone windows demonstrate no focal abnormality. Stable lytic lesion involving much of T12 with extension across the posterior cortex. Impression: Findings consistent with acute cholecystitis Electronically signed by Deejay Jones 04-12-2025 8:32 PM Code Status & VTE Plan Code Status Full code VTE Prophylaxis Plan VTE Prophylaxis will be ordered: Yes PG Care Time/CCT Total # of Minutes Spent Total Time Spent with Patient: Total time spent is greater than 50% in coordination of care (as documented) at patient's floor/unit and/or counseling patient: Coding Level of Care Code 91910 INT INP/OBS CARE 375MIN Diagnoses Acute calculous cholecystitis K80.00 Cancer associated pain G89.3 Multiple myeloma C90.00
--- NOTE | 2025-04-12 22:01 | Surgery Consultation ---
Date of Consultation April 12, 2025 Assessment & Plan (1) Acute calculous cholecystitis: 85-year-old woman presents with acute cholecystitis. She is being admitted to the medicine service. Will keep her n.p.o. overnight. IV antibiotics and IV fluid hydration. Will plan for OR tomorrow. History of Present Illness Reason for Consultation: acute cholecystitis Requesting Physician: ED physician Attending Physician: Vince Urbina MD History of Present Illness 85-year-old woman presents with a 1 day history of severe right upper quadrant abdominal pain. This was accompanied by nausea and vomiting. She denies fevers and chills. She denies other complaints. She did have bowel movements. She has not eaten today. She has no prior surgical history on her abdomen. Allergies Allergy/AdvReac Type Severity Reaction Status Date / Time No Known Allergies Allergy Verified 03/14/25 14:32 Home Medications Medication Instructions Recorded Confirmed Type calcium 600 mg (as carbonate)-vit 1 tab PO QAM 11/12/18 03/14/25 History D3 20 mcg (800 unit) chewable tablet (Caltrate plus D) acyclovir 400 mg tablet 400 mg PO QAM 05/13/24 03/14/25 History oxycodone 20 mg tablet 20 mg PO Q4H PRN Pain 05/13/24 03/14/25 History sennosides 8.6 mg tablet (senna) 8.6 mg PO QPM 05/13/24 03/14/25 History ondansetron 8 mg disintegrating 8 mg PO TID PRN Nausea 07/29/24 03/14/25 History tablet oxycodone 20 mg tablet,crush 40 mg PO Q12H 07/29/24 03/14/25 History resistant,extended release 12 hr (OxyContin) amlodipine 5 mg tablet 5 mg PO QAM #90 tabs 01/25/25 03/14/25 Rx atorvastatin 10 mg tablet 10 mg PO QAM #90 tabs 01/25/25 03/14/25 Rx dexamethasone 4 mg tablet See Rx Instructions .Route .COMPLEX 01/25/25 03/14/25 History lidocaine 5 % topical patch 1 patch topical DAILY PRN pain #15 01/25/25 03/14/25 Rx ea methylphenidate HCl 10 mg tablet 10 mg PO BID 01/25/25 03/14/25 History pantoprazole 40 mg tablet,delayed 40 mg PO QAM PRN acid reflux #90 01/25/25 03/14/25 Rx release tabs albuterol sulfate 90 mcg/actuation 2 puff inhalation Q6H PRN SOB #8.5 03/14/25 03/14/25 Rx aerosol inhaler grams Patient History Medical History Esophageal dysphagia Pulmonary nodule Malignant neoplasm of breast metastatic to bone T12 vertebral fracture (~12/16/23) large osteolytic lesion in the body of T12-per the pet scan Back pain of thoracolumbar region Sciatica Ectopic atrial rhythm CLAIRE (dyspnea on exertion) walking up hill or 1 FOS ongoing x 10 yrs, denies change or worsening Bilateral primary osteoarthritis of knee Anemia Osteoarthritis of knees, bilateral Chronic back pain CLAIRE (dyspnea on exertion) Chronic back pain Limb alert care status right arm Port-A-Cath in place Left chest Breast cancer (~10/2005) 2005; Rt mastectomy + chemo 2006-limb restriction Surgical History Status post total right knee replacement History of oral surgery History of knee replacement Right History of bone marrow biopsy (12/26/23) History of esophagogastroduodenoscopy (EGD) History of cataract surgery BL History of dilation and curettage Nausea and vomiting after administration of anesthetic agent Hx of colonoscopy Hx of foot surgery left Hx of appendectomy H/O mastectomy right-limb restriction Family History Father , Passed age 55 Multiple myeloma Chemotherapy Mother Lung disease Sister Breast cancer, Onset Age: 74 Masectomy Son No problems noted. Other No family history of adverse response to anesthesia Denies family history of Ovarian cancer Prostate cancer Myocardial infarction Lung cancer Colorectal cancer Social History Smoking Status: Current some day smoker Tobacco Type: Cigarettes Age Started Using Tobacco: 16; Age Quit Using Tobacco: 30; packs per day: 0.25; Second Hand Exposure: Yes (hx growing up); Do You Dip or Chew Tobacco: No; Hx Alcohol Use: Yes Alcohol type: wine Alcohol Intake Frequency: Monthly or Less Alcohol Intake Frequency Comment: socially Hx Substance Use: No Preferred Language: Telugu Communication Ability: Effective Visual Impairment: Limited Hearing Ability: Normal Church Business Administrator Required: No Beliefs That Will Affect Care: None marital status: Current Living Situation: Spouse current occupational status: retired current occupation: Retired from [employer] How many Children do You have: 1 Feels Safe at Home: Yes Childhood Exposure to Second-Hand Smoke: Yes Diet: regular caffeine: Yes Dental Care, Regularly: Yes Physical Activity Frequency: Does not Exercise Seatbelt Use: always Sunscreen Use: Yes Assistive Devices: Contacts Review of Systems Review of Systems: All systems reviewed & are unremarkable except as noted in HPI & below Physical Exam Constitutional: WD/WN, vitals as above Eyes: PERRL, conjunctivae normal, anicteric sclerae Neck: trachea midline, no thyromegaly Respiratory: normal respiratory effort; no respiratory distress and no labored breathing Cardiovascular: Rate/Rhythm: regular rate and regular rhythm Gastrointestinal (Abdomen): Inspection/Auscultation: abdomen normal to inspection; abdomen not distended Percussion/Palpation: + abdomen tender ( RUQ) and abdomen soft; no guarding and abdomen not rigid Skin: no rashes, warm and dry Psychiatric: A+Ox3, euthymic affect Results & Data Vital Signs (Past 12 Hours) Vital Signs Temp Pulse Resp BP Pulse Ox O2 Del Method 04/12/25 21:00 95 H 22 169/103 H 96 04/12/25 20:35 90 04/12/25 20:00 91 H 20 166/86 H 96 04/12/25 19:42 89 20 148/84 H 95 04/12/25 18:51 89 24 199/96 H 97 Room Air 04/12/25 16:45 91 H 04/12/25 16:42 88 21 163/75 H 95 Room Air 04/12/25 15:14 36.6 C 95 H 18 170/99 H 98 Room Air Laboratory Results 04/12/25 04/12/25 Range/Units 20:05 16:37 WBC 10.43 (4.8-10.8) K/ul RBC 4.97 (4.20-5.40) M/uL Hgb 14.9 (12.0-16.0) g/dL Hct 45.2 (37.0-47.0) % MCV 90.9 (80.0-100.0) fL MCH 30.0 (25.0-34.0) pg MCHC 33.0 (32.0-36.0) g/dL RDW Std Deviation 42.4 (36.4-46.3) fL RDW Coeff of Shana 12.8 (11.5-14.5) % Plt Count 157 (130-400) K/uL MPV 9.1 L (9.4-12.4) fL Immature Gran % (Auto) 0.3 % Neut % (Auto) 95.2 % Lymph % (Auto) 2.3 % [place] % (Auto) 2.0 % Eos % (Auto) 0.0 % Baso % (Auto) 0.2 % Neut # (Auto) 9.93 H (1.40-6.50) K/uL Lymph # (Auto) 0.24 L (1.20-3.40) K/uL [place] # (Auto) 0.21 (0.11-0.59) K/uL Eos # (Auto) 0.00 (0.00-0.50) K/uL Baso # (Auto) 0.02 (0.00-0.20) K/uL Immature Gran # (Auto) 0.03 (0.01-0.20) K/uL Toxic Vacuolation 1+ Ovalocytes 1+ Sodium 138 (136-145) mmol/L Potassium 3.9 (3.5-5.1) mmol/L Chloride 106 (98-107) mmol/L Carbon Dioxide 23 (21-32) mmol/L Anion Gap 9 (3-11) BUN 11 (6-23) mg/dl Creatinine 0.65 (0.6-1.2) mg/dl Est Cr Clr Drug Dosing Not Reportable eGFR 86.23 BUN/Creatinine Ratio 16.9 (10-20) Glucose 118 H (70-99(Fasting)) mg/dl Calcium 9.0 (8.6-10.3) mg/dl Total Bilirubin 1.4 H (0.2-1.0) mg/dl AST 19 (13-39) U/L ALT 9 (7-52) U/L Alkaline Phosphatase 98 (34-104) U/L Total Protein 6.4 (6.0-8.3) gm/dl Albumin 4.0 (3.4-5.0) gm/dl Globulin 2.4 L (2.5-4.0) gm/dl Albumin/Globulin Ratio 1.7 (0.9-2) Lipase 3 L (11-82) U/L Urine Color Yellow Urine Appearance Clear (Clear) Urine pH 7.5 (4.5-7.5) Ur Specific [place] 1.018 (1.000-1.030) Urine Protein Negative (Negative) Urine Glucose (UA) Negative (Negative) Urine Ketones Trace H (Negative) Urine Blood Negative (Negative) Urine Nitrite Negative (Negative) Urine Bilirubin Negative (Negative) Urine Urobilinogen Negative (Negative) Ur Leukocyte Esterase Negative (Negative) Urine Comment Diagnostic Findings Clinical history: Abdominal pain Technique: Sonography was performed of the right upper quadrant of the abdomen Findings: There is no sign of cirrhosis or significant fatty infiltration. No definite liver mass is seen There are multiple gallstones. The gallbladder wall is mildly thickened at 4 mm and appears edematous. Overlying tenderness was detected. There is no intrahepatic or extrahepatic bile duct dilatation. The common bile duct measures 5 mm The right kidney measures 9.9 cm in length. There is no hydronephrosis. No definite renal calculus or mass is seen The visualized pancreas, aorta, and IVC appear unremarkable. No ascites is seen Impression: Acute cholecystitis ACT 112: Positive. There are findings on this exam that require communication between the performing entity and the patient following Patient Test Result Information Act ([place] ACT 112) guidelines. Electronically signed by Billy Samuel 04-12-2025 7:51 PM
[2025-04-12] MEDS: PANTOprazole 40 MG/10 ML SYR IV ONE (23:14)
[2025-04-12] MEDS: NSS + 20MEQ KCL 20 MEQ/1,000 ML BAG IV SCH (23:20)
[2025-04-12] MEDS: cefTRIAXone SODIUM 2,000 MG/50 ML BAG IV SCH (23:21)
[2025-04-12] MEDS ORDERED: ALBUTEROL HFA 8 GM INHALER INH PRN (23:43)
[2025-04-12] MEDS: HYDROmorphone INJ 0.5 MG/0.5 ML SYR IV PRN (23:55)
[2025-04-13] MEDS: PROCHLORPERAZINE 10 MG in SYRINGE 8 ML IV PRN (00:10)
[2025-04-13] MEDS: ACETAMINOPHEN 1,000 MG/100 ML VIAL IV PRN (03:39)
[2025-04-13] MEDS ORDERED: ceFAZolin 3000MG 3,000 MG/72.5 ML BAG IV SCH (06:00)
--- NOTE | 2025-04-13 07:16 | Anesthesiology Consultation ---
Date of Service April 13, 2025 Assessment & Plan Chart Review Chart Review: Acceptable Risk for Surgery and Patient NOT seen in Pre Admission Testing Consults Requested none ASA ASA4 Proposed Anesthesia Anesthesia Type: General History Surgery Operation Date: 04/13/25 07:00 Proposed Procedures p Laparoscopic Cholecystectomy - Dilan Huerta MD Height/Weight Height: 5 ft 2 in Weight: 69.2 kg Allergies Allergy/AdvReac Type Severity Reaction Status Date / Time No Known Allergies Allergy Verified 03/14/25 14:32 Medications Home Medications Medication Instructions Recorded Confirmed Last Taken calcium 600 mg (as carbonate)-vit 1 tab PO QAM 11/12/18 03/14/25 11/11/21 10:00 D3 20 mcg (800 unit) chewable tablet (Caltrate plus D) acyclovir 400 mg tablet 400 mg PO QAM 05/13/24 03/14/25 Unknown oxycodone 20 mg tablet 20 mg PO Q4H PRN Pain 05/13/24 03/14/25 Unknown sennosides 8.6 mg tablet (senna) 8.6 mg PO QPM 05/13/24 03/14/25 Unknown ondansetron 8 mg disintegrating 8 mg PO TID PRN Nausea 07/29/24 03/14/25 Unknown tablet oxycodone 20 mg tablet,crush 40 mg PO Q12H 07/29/24 03/14/25 Unknown resistant,extended release 12 hr (OxyContin) amlodipine 5 mg tablet 5 mg PO QAM #90 tabs 01/25/25 03/14/25 Unknown atorvastatin 10 mg tablet 10 mg PO QAM #90 tabs 01/25/25 03/14/25 Unknown dexamethasone 4 mg tablet See Rx Instructions .Route .COMPLEX 01/25/25 03/14/25 Unknown lidocaine 5 % topical patch 1 patch topical DAILY PRN pain #15 01/25/25 03/14/25 Unknown ea methylphenidate HCl 10 mg tablet 10 mg PO BID 01/25/25 03/14/25 Unknown pantoprazole 40 mg tablet,delayed 40 mg PO QAM PRN acid reflux #90 01/25/25 03/14/25 Unknown release tabs albuterol sulfate 90 mcg/actuation 2 puff inhalation Q6H PRN SOB #8.5 03/14/25 03/14/25 Unknown aerosol inhaler grams Active Medications Generic Name Dose Route Start Last Admin Trade Name Freq PRN Reason Stop Dose Admin Hydromorphone HCl 0.5 mg 04/12/25 21:25 04/12/25 23:55 Hydromorphone Inj 0.5 Mg/0.5 Ml Syr IV 04/26/25 21:24 0.5 mg Q3H PRN Administration Severe Pain (Scale 7, 8, 9,10) Ceftriaxone Sodium 2,000 mg in 50 mls @ 100 mls/hr 04/12/25 22:00 04/12/25 23:59 Rocephin IV 04/22/25 21:59 Infused Q24H ROLAND Infusion Prochlorperazine 10 mg/ 10 mls @ 5 mls/min 04/12/25 21:28 04/13/25 00:10 Syringe IV 05/12/25 21:27 5 mls/min Q6H PRN Administration Nausea And Vomiting Potassium Chloride/Sodium Chloride 20 meq in 1,000 mls @ 100 mls/hr 04/12/25 21:30 04/12/25 23:20 Normal Saline W/20 Meq Kcl IV 04/13/25 17:29 100 mls/hr .Q10H ROLAND Administration Acetaminophen 1,000 mg in 100 mls @ 400 mls/hr 04/12/25 21:38 04/13/25 03:59 Ofirmev IV 04/15/25 21:37 Infused Q8H PRN Infusion Pain or Fever Past Medical History Medical History Esophageal dysphagia Pulmonary nodule Malignant neoplasm of breast metastatic to bone T12 vertebral fracture (~12/16/23) large osteolytic lesion in the body of T12-per the pet scan Back pain of thoracolumbar region Sciatica Ectopic atrial rhythm CLAIRE (dyspnea on exertion) walking up hill or 1 FOS ongoing x 10 yrs, denies change or worsening Bilateral primary osteoarthritis of knee Anemia Osteoarthritis of knees, bilateral Chronic back pain CLAIRE (dyspnea on exertion) Chronic back pain Limb alert care status right arm Port-A-Cath in place Left chest Breast cancer (~10/2005) 2005; Rt mastectomy + chemo 2007-limb restriction multiple myeloma Pre-DM HLD HTN SARAH BETH ASCVD Ao Osteoporosis PONV Gerd Exercise / Class Metabolic Activity III < 4 Walking/Shop/Light housework Past Family History Family History Father , Passed age 55 Multiple myeloma Chemotherapy Mother Lung disease Sister Breast cancer, Onset Age: 74 Masectomy Son No problems noted. Other No family history of adverse response to anesthesia Denies family history of Ovarian cancer Prostate cancer Myocardial infarction Lung cancer Colorectal cancer Past Surgical History Surgical History Status post total right knee replacement History of oral surgery History of knee replacement Right History of bone marrow biopsy (12/26/23) History of esophagogastroduodenoscopy (EGD) History of cataract surgery BL History of dilation and curettage Nausea and vomiting after administration of anesthetic agent Hx of colonoscopy Hx of foot surgery left Hx of appendectomy H/O mastectomy right-limb restriction Past Anesthesia History No Hx of Anesthesia Complications and No Family Hx of Anesthesia Complications History of PONV No Hx of PONV and No Hx of Motion Sickness Social History Smoking Status: Former smoker Do You Dip or Chew Tobacco: No Hx Alcohol Use: No Alcohol type: wine alcohol intake frequency: holidays/special occasions only Hx Substance Use: No substance use type: does not use Physical Exam Vital Signs Last Vital Signs Temp 37.4 C 04/13/25 02:46 Pulse 99 H 04/13/25 02:46 Resp 18 04/13/25 02:46 BP 131/78 04/13/25 02:46 Pulse Ox 95 04/13/25 02:46 O2 Del Method Room Air 04/13/25 02:46 Testing Laboratory Results 04/12/25 16:37 04/12/25 16:37 Urine Color Yellow 04/12/25 20:05 Urine Appearance Clear (Clear) 04/12/25 20:05 Urine pH 7.5 (4.5-7.5) 04/12/25 20:05 Ur Specific [place] 1.018 (1.000-1.030) 04/12/25 20:05 Urine Protein Negative (Negative) 04/12/25 20:05 Urine Glucose (UA) Negative (Negative) 04/12/25 20:05 Urine Ketones Trace (Negative) H 04/12/25 20:05 Urine Nitrite Negative (Negative) 04/12/25 20:05 Ur Leukocyte Esterase Negative (Negative) 04/12/25 20:05 Electrocardiogram Date: 10/08/21 Findings: + NSR @ (@ 63;LAD) Stress Test Date: 08/15/21 Type: DSE Findings: + WNL and + achieved max HR (92% MPHR) Resting EF: 55% Resting LV Function: normal Resting RWMA: + none Valvular Disease: no significant valvular disease and MR (mild) TR-mild GR 1 DD
[2025-04-13] MEDS: LACTATED RINGER'S 1,000 ML IV SCH (07:40)
[2025-04-13] MEDS ORDERED: ROCURONIUM BROMIDE 10 MG/ML 5 ML VIAL IV ONE (07:50)
[2025-04-13] MEDS ORDERED: DEXAMETHASONE SOD INJ 4 MG/ML VIAL ONE (07:50)
[2025-04-13] MEDS ORDERED: PROPOFOL IV EMULSION 10 MG/ML 20 ML VIAL IV ONE (07:50)
[2025-04-13] MEDS ORDERED: SUGAMMADEX SODIUM 200 MG/2 ML VIAL IV ONE (07:50)
[2025-04-13] MEDS ORDERED: ONDANSETRON INJ 2 MG/ML 2 ML VIAL ONE (07:50)
--- NOTE | 2025-04-13 08:24 | History & Physical Bridge Note ---
Date of Service April 13, 2025 History & Physical Bridge Note I have examined the patient, reviewed the History & Physical and in the interval since the performance of the History & Physical I have noted the following changes of clinical significance: no changes noted
[2025-04-13] MEDS ORDERED: PROMETHAZINE HCL 6.25 MG in SODIUM CHLORIDE 0.9% 50 ML IV PRN (08:28)
[2025-04-13] MEDS ORDERED: ONDANSETRON INJ 2 MG/ML 2 ML VIAL IV PRN (08:28)
[2025-04-13] MEDS ORDERED: NALOXONE HCL 0.4 MG/1 ML VIAL/CARP IV PRN (08:28)
[2025-04-13] MEDS ORDERED: ATROPINE SULFATE 0.1 MG/ML 10ML SYR IV PRN (08:28)
--- NOTE | 2025-04-13 08:47 | History & Physical Bridge Note ---
Date of Service April 13, 2025 History & Physical Bridge Note I have examined the patient, reviewed the History & Physical and in the interval since the performance of the History & Physical I have noted the following changes of clinical significance: no changes noted. We plan to do a laparoscopic cholecystectomy without cholangiogram. She understands all the risks documented in the consent.
--- NOTE | 2025-04-13 08:49 | Communication Note ---
Date of Service: April 13, 2025 Pt. has a vascular access port
[2025-04-13] MEDS: SURGICEL ABSORB HEMOSTAT 2IN X 14IN TOP ONE (09:33)
[2025-04-13] MEDS: BUPIVACAINE/EPINEPHRINE 0.5% MPF 1:200,000 30 ML VIAL ONE (09:45)
--- NOTE | 2025-04-13 10:07 | Operative Report ---
Post Operative Report Pre & Post Diagnosis Operation Date: 04/13/25 07:00 Acute calculous cholecystitis I identified the patient and participated in the time-out.: Yes Procedure Laparoscopic cholecystectomy Surgeon Dilan Huerta MD [employer] none Estimated Blood Loss 35 Findings Consistent with Post-Op Diagnosis Specimens Gallbladder to pathology Drains none Anesthesia Type General Complications none Disposition Accompanied Patient To Recovery: No Disposition: Recovery Room Indications This [id number] female admitted last night through the emergency department with acute abdominal pain. Ultrasound showed obvious acute cholecystitis. She was began on IV fluids and IV antibiotics. We will take her today for laparoscopic cholecystectomy. She understands all the risks documented in the consent. Description of Procedure The patient was taken the OR, placed in the supine position and underwent excellent general endotracheal anesthesia. Their abdomen is prepped and draped normal sterile fashion. A transverse supraumbilical incision was made and dissection was taken down to identify the anterior fascia. Two Vicryl sutures were placed on either side of the midline and his midline was then incised. The peritoneal cavity was entered bluntly with Marcia clamp. A 12mm Lam trocar was then inserted and secured. Good pneumoperitoneum was achieved to 15 mmHg pressure. The patient was placed in head up and rolled to the left position. A 11mm subxiphoid and two 5mm lateral ports were placed in the normal fashion. The gallbladder was identified and was acutely inflamed. An aspirator was then used to aspirate the gallbladder. This then facilitated grasping the fundus of the gallbladder which was retracted superiorly. The neck of the gallbladder was grasped and then retracted laterally. This splayed open the Hepatocystic triangle. Attention was then turned to taking down the peritoneal attachments and identify the cystic duct and cystic artery. Once these were skeletonized and a medial and lateral window was created between the gallbladder fossa and the duct, thereby ensuring the critical view. Then three clips were then placed distally on cystic duct one proximally on the cystic duct, it was then transected. Two clips were then placed approximately on the cystic artery one distally, the cystic artery was transected. An electrocautery hook was then used to move the gallbladder off the gallbladder fossa. There was some bile spillage but no stones were spilled. The gallbladder was then placed into an Endobag and brought out through the supraumbilical incision. The pneumoperitoneum was re-established and abdomen was irrigated out until the suction fluid was clear. There were some areas on the gallbladder fossa which were raw which were cauterized and then a Surgicel was used to cover the gallbladder fossa. The ports were then removed and the abdomen decompressed. The fascia of the supraumbilical incision was closed with Vicryl sutures. 0.5% Marcaine with epinephrine local was to create a local field block. A Vicryl suture was used to close the skin. Dermabond was used to reinforce the incisions. Patient tolerated the procedure without complication and sent to the postop recovery period of observation. They will then be sent to the floor for the rest of their care. I attest to the content of the Intraoperative Record and any orders documented therein. Any exceptions are noted below.
[2025-04-13] MEDS ORDERED: HYDROmorphone INJ 0.5 MG/0.5 ML SYR IV PRN ×3 (10:16→14:15)
[2025-04-13] MEDS: HYDROmorphone INJ 1 MG/ML SYRINGE ONE (10:28)
--- NOTE | 2025-04-13 11:06 | Anesthesiology Progress Note ---
Date of Service April 13, 2025 Anesthesia Post Procedure Vital Signs Vital Signs: Temp Pulse Pulse Pulse Resp BP BP 04/13/25 10:50 84 20 118/62 04/13/25 10:40 37.4 C 87 18 126/60 04/13/25 10:30 88 23 129/62 04/13/25 10:20 83 21 138/61 04/13/25 10:10 87 24 155/62 H 04/13/25 10:01 36.5 C 92 H 20 150/73 H 04/13/25 07:32 37.1 C 96 H 20 135/68 04/13/25 07:19 90 04/13/25 02:46 37.4 C 99 H 18 131/78 04/13/25 00:50 36.6 C 102 H 22 164/83 H 04/13/25 00:18 93 H 04/12/25 23:43 36.6 C 102 H 22 164/83 H 04/12/25 23:00 89 24 162/92 H 04/12/25 22:00 84 24 150/80 H 04/12/25 21:00 95 H 22 169/103 H 04/12/25 20:35 90 04/12/25 20:00 91 H 20 166/86 H 04/12/25 19:42 89 20 148/84 H 04/12/25 18:51 89 24 199/96 H 04/12/25 16:45 91 H 04/12/25 16:42 88 21 163/75 H 04/12/25 15:14 36.6 C 95 H 18 170/99 H Pulse Ox O2 Del Method O2 Flow Rate 04/13/25 10:50 95 Room Air 04/13/25 10:40 94 Room Air 04/13/25 10:30 95 Room Air 04/13/25 10:20 95 Room Air 04/13/25 10:10 97 Oxymask 4 04/13/25 10:01 97 Room Air 04/13/25 07:32 95 Room Air 04/13/25 07:19 04/13/25 02:46 95 Room Air 04/13/25 00:50 92 Room Air 04/13/25 00:18 04/12/25 23:43 92 Room Air 04/12/25 23:00 98 04/12/25 22:00 96 04/12/25 21:00 96 04/12/25 20:35 04/12/25 20:00 96 04/12/25 19:42 95 04/12/25 18:51 97 Room Air 04/12/25 16:45 04/12/25 16:42 95 Room Air 04/12/25 15:14 98 Room Air Pain Intensity Right Upper Abdomen: Pain Intensity: 4 Transfer of Care Handoff Completed per policy Notes Mental Status: alert / awake / arousable Patient Amnestic to Procedure: Yes Nausea / Vomiting: adequately controlled Pain: adequately controlled Airway Patency, RR, SpO2: stable & adequate BP & HR: stable & adequate Hydration State: stable & adequate Anesthetic Complications: no major complications apparent
[2025-04-13] MEDS: metroNIDAZOLE 500 MG/100 ML BAG IV SCH (11:17)
[2025-04-13] MEDS: PANTOprazole 40 MG/10 ML SYR IV SCH (11:17)
[2025-04-13] MEDS: ACYCLOVIR 400 MG TAB PO SCH (11:18)
[2025-04-13 11:37] VITALS: RESP 18
[2025-04-13 15:20] LABS: Alanine Aminotransferase 27.0 U/L (7-52); Albumin Globulin Ratio 1.6 (0.9-2); Albumin Level 2.8 gm/dl (3.4-5.0); Alkaline Phosphatase 64.0 U/L (34-104); Anion Gap 6.0 (3-11); Bilirubin,Total 0.8 mg/dl (0.2-1.0); Blood Urea Nitrogen 12.0 mg/dl (6-23); Calcium 7.1 mg/dl (8.6-10.3); Carbon Dioxide 22.0 mmol/L (21-32); Chloride 108.0 mmol/L (98-107); Creatinine Clr Calc Pharmacy 55.1 ml/min; Globulin 1.8 gm/dl (2.5-4.0); Glucose 211.0 mg/dl (70-99(Fasting)); Magnesium 1.6 mg/dl (1.7-2.4); Potassium 3.8 mmol/L (3.5-5.1); Sodium 136.0 mmol/L (136-145); Total Protein 4.6 gm/dl (6.0-8.3)
[2025-04-13 15:21] LABS: Hematocrit (blood only) 37.0 % (37.0-47.0); Hemoglobin 12.1 g/dL (12.0-16.0); Immature Granulocytes # (auto) 0.56 K/uL (0.01-0.20); Immature Granulocytes % (auto) 1.9 %; Mean Corpuscular Hemoglobin 29.4 pg (25.0-34.0); Mean Corpuscular Volume 89.8 fL (80.0-100.0); Platelet Count 113 K/uL (130-400); Polychromasia 1+; RDW Standard Deviation 43.9 fL (36.4-46.3); Red Blood Count 4.12 M/uL (4.20-5.40); White Blood Count 29.18 K/ul (4.8-10.8)
--- NOTE | 2025-04-13 17:01 | Hospitalist Progress Note ---
Date of Service April 13, 2025 Assessment & Plan (1) Acute calculous cholecystitis: (2) Cancer associated pain: (3) Multiple myeloma: Plan The patient is an 85-year-old female with past medical history including multiple myeloma, cancer associated pain, GERD with esophagitis, prediabetes, osteoporosis, vitamin B12 deficiency, dyslipidemia, history of breast cancer 2005, hypertension, and sleep apnea. She presents to the emergency department with the acute onset of severe right upper quadrant abdominal pain that began around noon today, after eating lunch. She had some associated nausea and vomiting, but denied fevers or chills. In the emergency department workup included a gallbladder ultrasound and CT of abdomen and pelvis which were consistent with acute cholecystitis. LFTs were not significantly elevated except for a total bilirubin of 1.4. WBC was borderline 10.43. From the ED patient received the following: Ancef 3 g IV, Zofran 4 mg IV x 2, morphine sulfate 4 mg IV, and normal saline 1 L bolus. General surgery has been consulted, and also saw the patient while in the ED. #Acute calculous cholecystitis s/p lap mati performed by Dr Huerta 04/13 Now on clears, advance diet per surgery recommendations Patient is opiate tolerant therefore will d/c percocet and switch to oxycodone 10-20mg q4h PRN with her usual OxyContin 40mg HS (this PO regimen is what she was on prior to her operation) Dilaudid 0.5-1mg IV q3h PRN for breakthrough pain if oxycodone is not effective Monitor closely for constipation Narcan IV per protocol Continue ceftriaxone and added metronidazole Finish NSS + KCl 20 mEq at 100 mL/h x 2 L Appreciate general surgery management #Multiple myeloma Continue acyclovir prophylaxis Hold methylphenidate - will consider restarting this tomorrow #Hypertension Hold amlodipine, BP still low normal #Hyperlipidemia Resume atorvastatin #GERD with esophagitis Resume oral pantoprazole #Sleep apnea/asthma Nasal cannula as needed at that time Continue albuterol HFA 2 puffs every 6 hours as needed VTE Prophylaxis - start Lovenox when ok from surgical stand point, likely tomorrow, SCDs until then Disposition - medically stable for med/surg, unremarkable telemetry, PT/OT ordered Admission and Anticipated Discharge Date Admission Date: April 12, 2025 Subjective Patient seen post operatively and having significant generalized abdominal pain post operatively. Did not receive her usual OxyContin last night. Despite this being prescribed q12h she reports only taking this at night and uses oxycodone 20mg q4h PRN during the day for her myeloma pain. Otherwise nausea has significantly improved since cholecystectomy. Not yet had BM or passing gas post operatively. No chest pain, shortness of breath. Physical Exam Respiratory: normal respiratory effort, lungs clear to auscultation Cardiovascular: RRR, no murmur, no edema Gastrointestinal (Abdomen): Inspection/Auscultation: abdomen normal to inspection; abdomen not distended Percussion/Palpation: + abdomen tender (generalized) and abdomen soft; no guarding and abdomen not rigid Psychiatric: A+Ox3, euthymic affect Results & Data Results & Data Vital Signs (Past 12 Hours) Vital Signs Temp Pulse Pulse Pulse Resp BP Pulse Ox 04/13/25 15:42 36.5 C 89 18 104/63 95 04/13/25 14:07 36.5 C 90 18 101/64 94 04/13/25 13:49 93 H 04/13/25 12:35 36.5 C 95 H 18 118/71 94 04/13/25 11:49 87 04/13/25 11:37 36.8 C 91 H 18 119/63 94 04/13/25 11:14 36.7 C 90 16 112/61 94 04/13/25 10:50 84 20 118/62 95 04/13/25 10:40 37.4 C 87 18 126/60 94 04/13/25 10:30 88 23 129/62 95 04/13/25 10:20 83 21 138/61 95 04/13/25 10:10 87 24 155/62 H 97 04/13/25 10:01 36.5 C 92 H 20 150/73 H 97 04/13/25 07:32 37.1 C 96 H 20 135/68 95 04/13/25 07:19 90 O2 Del Method O2 Flow Rate 04/13/25 15:42 Room Air 04/13/25 14:07 Room Air 04/13/25 13:49 04/13/25 12:35 Room Air 04/13/25 11:49 04/13/25 11:37 Room Air 04/13/25 11:14 Room Air 04/13/25 10:50 Room Air 04/13/25 10:40 Room Air 04/13/25 10:30 Room Air 04/13/25 10:20 Room Air 04/13/25 10:10 Oxymask 4 04/13/25 10:01 Room Air 04/13/25 07:32 Room Air 04/13/25 07:19 PG Care Time/CCT Total # of Minutes Spent Total Time Spent with Patient: Total time spent is greater than 50% in coordination of care (as documented) at patient's floor/unit and/or counseling patient: Coding Level of Care Code 09120 SUB INP/OBS CARE 2/35MIN Diagnoses Acute calculous cholecystitis K80.00 Cancer associated pain G89.3 Multiple myeloma C90.00
[2025-04-14 05:59] LABS: Hematocrit (blood only) 34.3 % (37.0-47.0); Hemoglobin 11.2 g/dL (12.0-16.0); Mean Corpuscular Hemoglobin 29.1 pg (25.0-34.0); Mean Corpuscular Volume 89.1 fL (80.0-100.0); Platelet Count 97 K/uL (130-400); RDW Standard Deviation 43.7 fL (36.4-46.3); Red Blood Count 3.85 M/uL (4.20-5.40); White Blood Count 18.03 K/ul (4.8-10.8)
[2025-04-14 06:13] LABS: Alanine Aminotransferase 34.0 U/L (7-52); Albumin Globulin Ratio 1.7 (0.9-2); Albumin Level 2.9 gm/dl (3.4-5.0); Alkaline Phosphatase 63.0 U/L (34-104); Anion Gap 6.0 (3-11); Bilirubin,Total 0.4 mg/dl (0.2-1.0); Blood Urea Nitrogen 13.0 mg/dl (6-23); Calcium 6.8 mg/dl (8.6-10.3); Carbon Dioxide 22.0 mmol/L (21-32); Chloride 110.0 mmol/L (98-107); Creatinine Clr Calc Pharmacy 66.9 ml/min; Globulin 1.7 gm/dl (2.5-4.0); Glucose 111.0 mg/dl (70-99(Fasting)); Magnesium 1.8 mg/dl (1.7-2.4); Potassium 3.5 mmol/L (3.5-5.1); Sodium 138.0 mmol/L (136-145); Total Protein 4.6 gm/dl (6.0-8.3)
[2025-04-14 06:36] LABS: Immature Granulocytes # (auto) 0.20 K/uL (0.01-0.20); Immature Granulocytes % (auto) 1.1 %
[2025-04-14] MEDS: HYDROmorphone INJ 0.5 MG/0.5 ML SYR IV PRN (09:42)
--- NOTE | 2025-04-14 10:52 | Surgery Progress Note ---
Date of Service April 14, 2025 Assessment & Plan (1) Acute calculous cholecystitis: Plan: doing well postop advance diet as patient wishes; no restrictions discharge per medical team no need for outpatient antibiotics Present on Admission?: Yes Admission and Anticipated Discharge Date Admission Date: April 12, 2025 Subjective pain controlled taking clears Review of Systems Constitutional: no fever and no chills Respiratory: no dyspnea Cardiovascular: no chest pain Gastrointestinal: + abdominal pain; no nausea and no vomit ing Neurologic: no localized weakness Physical Exam Constitutional: WD/WN, vitals as above Respiratory: normal respiratory effort Cardiovascular: Rate/Rhythm: regular rate and regular rhythm Gastrointestinal (Abdomen): Inspection/Auscultation: abdomen normal to inspection and + abdominal surgical incision; abdomen not distended Percussion/Palpation: + abdomen tender and abdomen soft Musculoskeletal: Head/Neck/Chest: normocephalic and head atraumatic Results & Data Vital Signs (Past 12 Hours) Vital Signs Temp Pulse Pulse Resp BP Pulse Ox O2 Del Method 04/14/25 07:48 36.6 C 76 18 163/80 H 94 Room Air 04/13/25 23:01 36.7 C 79 18 104/61 94 Room Air
[2025-04-14] MEDS: SENNA 8.6 MG TAB PO SCH (12:39)
--- NOTE | 2025-04-14 16:56 | Hospitalist Progress Note ---
Date of Service April 14, 2025 Assessment & Plan (1) Acute calculous cholecystitis: (2) Cancer associated pain: (3) Multiple myeloma: Plan 85 year old presents to the ER with acute onset of severe right upper quadrant abdominal pain #Acute calculous cholecystitis s/p lap mati performed by Dr Huerta 04/13 Now on clears, advance diet per surgery recommendations Continue OxyContin 40mg HS (not on BID at home) with oxycodone 10-20mg q4h PRN Dilaudid 0.5-1mg IV q3h PRN for breakthrough pain if oxycodone is not effective Monitor closely for constipation Narcan IV per protocol Continue ceftriaxone and added metronidazole - can discontinue these today Appreciate general surgery management Advance diet to low fiber / low fat, likely discharge home in AM if tolerating diet Start Senna for constipation (she takes this intermittently at home and usually works for her opiate induced constipation) #Multiple myeloma Continue acyclovir prophylaxis Hold methylphenidate - patient does not feel like she needs this in hospital #Hypertension Restart amlodipine #Hyperlipidemia Continue atorvastatin #GERD with esophagitis Continue pantoprazole #Sleep apnea/asthma Nasal cannula as needed at that time Continue albuterol HFA 2 puffs every 6 hours as needed VTE Prophylaxis - Lovenox 40mg SQ HS Disposition - continue on med/surg, PT/OT pending, likely discharge tomorrow Admission and Anticipated Discharge Date Admission Date: April 12, 2025 Subjective Tolerating clears. Abdominal pain now much better controlled after restarting oxycontin. Passing gas but no current bowel movement. Physical Exam Gastrointestinal (Abdomen): Inspection/Auscultation: abdomen normal to inspection; abdomen not distended Percussion/Palpation: abdomen soft; abdomen nontender Results & Data Results & Data Vital Signs (Past 12 Hours) Vital Signs Temp Pulse Pulse Resp BP Pulse Ox O2 Del Method 04/14/25 16:33 36.6 C 66 18 180/90 H 91 Room Air 04/14/25 07:48 36.6 C 76 18 163/80 H 94 Room Air PG Care Time/CCT Total # of Minutes Spent Total Time Spent with Patient: Total time spent is greater than 50% in coordination of care (as documented) at patient's floor/unit and/or counseling patient: Coding Level of Care Code 14772 SUB INP/OBS CARE 2/35MIN Diagnoses Acute calculous cholecystitis K80.00 Cancer associated pain G89.3 Multiple myeloma C90.00
[2025-04-14] MEDS: ENOXAPARIN INJ 40 MG/0.4 ML SYR SQ SCH (20:37)
[2025-04-14 23:20] VITALS: O2SAT 95
[2025-04-15 06:08] LABS: Hematocrit (blood only) 36.4 % (37.0-47.0); Hemoglobin 11.9 g/dL (12.0-16.0); Immature Granulocytes # (auto) 0.07 K/uL (0.01-0.20); Immature Granulocytes % (auto) 0.6 %; Mean Corpuscular Hemoglobin 29.5 pg (25.0-34.0); Mean Corpuscular Volume 90.3 fL (80.0-100.0); Platelet Count 111 K/uL (130-400); RDW Standard Deviation 44.2 fL (36.4-46.3); Red Blood Count 4.03 M/uL (4.20-5.40); White Blood Count 12.54 K/ul (4.8-10.8)
[2025-04-15 06:25] LABS: Anion Gap 5.0 (3-11); Blood Urea Nitrogen 11.0 mg/dl (6-23); Carbon Dioxide 23.0 mmol/L (21-32); Chloride 111.0 mmol/L (98-107); Potassium 3.4 mmol/L (3.5-5.1); Sodium 139.0 mmol/L (136-145)
[2025-04-15 06:26] LABS: Alanine Aminotransferase 23.0 U/L (7-52); Albumin Globulin Ratio 1.7 (0.9-2); Albumin Level 3.0 gm/dl (3.4-5.0); Alkaline Phosphatase 64.0 U/L (34-104); Bilirubin,Total 0.4 mg/dl (0.2-1.0); Calcium 7.0 mg/dl (8.6-10.3); Creatinine Clr Calc Pharmacy 56.8 ml/min; Globulin 1.8 gm/dl (2.5-4.0); Glucose 106.0 mg/dl (70-99(Fasting)); Magnesium 1.9 mg/dl (1.7-2.4); Total Protein 4.8 gm/dl (6.0-8.3)
[2025-04-15 07:37] VITALS: BP 154/83; PULSE 77; TEMP 98.1
[2025-04-15] MEDS: POTASSIUM CHLORIDE CRTAB 20 MEQ TABCR PO STA (08:12)
[2025-04-15] MEDS: HEPARIN 100 UNIT/ML 5ML FLUSH FLUSH STA (13:48)
--- NOTE | 2025-04-15 14:54 | Discharge Summary ---
<Statement entered by Param Garcia MD - 04/15/25 18:08> I visited with the patient at the bedside on the morning of DC agree with stated plan with no revisions Discharge Summary Date of Service April 15, 2025 Principal Dx & Hospital Course #1 = Principal Diagnosis (1) Acute calculous cholecystitis: (2) Cancer associated pain: (3) Multiple myeloma: Plan 85 year old presents to the ER with acute onset of severe right upper quadrant abdominal pain. #Acute calculous cholecystitis s/p lap mati performed by Dr Huerta 04/13 diet advancement-->clears to low fiber, low fat Continue OxyContin 40mg HS (not on BID at home) with oxycodone 10-20mg q4h PRN-->patient had adequate supply of pain medication at home, PDMP completed with confirmation Dilaudid 0.5-1mg IV q3h PRN for breakthrough pain if oxycodone is not effective Monitor closely for constipation-->No BM on discharge, passing gas, +BS, instructed to start daily Miralax on d/c Narcan IV per protocol Received ceftriaxone/metronidazole then d/c'ed, no need for outpatient antibiotics #Multiple myeloma Continue acyclovir prophylaxis Hold methylphenidate - patient does not feel like she needs this in hospital #Hypertension amlodipine #Hyperlipidemia atorvastatin #GERD with esophagitis pantoprazole #Sleep apnea/asthma oxygenating appropriately on RA during hospitalization Continue albuterol HFA 2 puffs every 6 hours as needed VTE Prophylaxis - Lovenox 40mg SQ HS Disposition -d/c home with surgery and PCP follow up Notes For Next Care Provider Of note-->patient in need of nutrition consult related to labs revealed in ho spital setting Globulin 1.8, Albumin 3.0, total protein 4.8 (offered nutrition consult during hospitalization and declined) Will need repeat CBC for f/u-->CBC on d/c 12 with no clinical signs of in fection Medication Changes From Visit None Admission HPI Per Admitting Provider The patient is an 85-year-old female with past medical history including multiple myeloma, cancer associated pain, GERD with esophagitis, prediabetes, osteoporosis, vitamin B12 deficiency, dyslipidemia, history of breast cancer 2005, hypertension, and sleep apnea. She presents to the emergency department with the acute onset of severe right upper quadrant abdominal pain that began around noon today, after eating lunch. She had some associated nausea and vomiting, but denied fevers or chills. In the emergency department workup included a gallbladder ultrasound and CT of abdomen and pelvis which were consistent with acute cholecystitis. LFTs were not significantly elevated except for a total bilirubin of 1.4. WBC was borderline 10.43. From the ED patient received the following: Ancef 3 g IV, Zofran 4 mg IV x 2, morphine sulfate 4 mg IV, and normal saline 1 L bolus. General surgery has been consulted, and also saw the patient while in the ED. Should be admitted to the hospitalist service with a general surgery consult. Discharge Exam GENERAL APPEARANCE: A&O. Sitting comfortably in bed. NAD. SKIN: Normal color without rashes or lesions. Normal turgor. HEENT: Head AT/NC. Buccal mucosa is moist and pink. NECK: No jugular venous distention. No thyroid enlargement. There is no lymphadenopathy. HEART: RRR without m/g/r LUNGS: Normal inspiratory effort. CTA without w/r/r ABDOMEN: No guarding or rigidity. Normoactive BS in all four quadrants. Abdomen soft and NT. 4 lap sites with dermabond present. MSK: No bony gross/deformities throughout. ROM intact. EXTREMITIES: No edema, No peripheral cyanosis. Neuro: CN 2-12 grossly intact. No focal neuro deficits PSYCHIATRIC: Normal affect. Eye contact is good. Speech is normal rate and content. Responses are appropriate. Discharge Plan Discharge Items Patient Disposition: Home - Self-Care Reason For Visit: ACUTE CHOLECYSTITIS, MULTIPLE MYELOMA Discharge Diagnosis: Acute cholecystis, s/p laparoscopic cholecystectomy, multiple myeloma Condition on Discharge: Good Activity: Per Instructions section Lifting: No more than 25 pounds Bathing: No limitations Bathing Comment: shower, avoid submerging incsions Exercise/Sports: Wait until after follow-up appointment Driving/Machine Use: Resume 3 days after discharge Weightbearing: Full weightbearing Non-emergency contact: Surgeon Call non-emergency contact if: your pain is concerning for you, your temperature is above 101.5 and your wound pain has increased Follow-up/Referrals: Cristina Gonsalves MD [Primary Care Provider] - 04/28/25 11:00 am Dietitian Info: Please follow up family doctor for referral to quill reamer Diet: Regular, Low Fiber and Low Fat Addtl Attending Provider Instructions: Rosalia You were admitted to the hospital due to an an infection in your gallbladder and gallstones. You underwent surgery and will need to follow up with your surgical team with [facility] in 2 weeks for evaluation. It was recommended you see a keyboard operator prior to discharge. You are electing to follow up with your family doctor for nutritional follow up and referral to a quill reamer to address these concerns. Please see below for recommendations for pain management medication implementation with Motrin and Tylenol. You have relayed that you are on OxyContin extended at home at bedtime and as needed Oxycodone with adequate supplies of this medication at home for self administration. 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 You have decided to purchase this over the counter. Please follow up with your family doctor within one week of discharge. Post-Surgical ~Discharge Instructions Activity Recommendations: - Lifting limitation: (<20 pounds for 3-4 weeks), - Exercise/sex/sports limit: (nonstrenuous for 2 weeks), - Driving or machine use limit: (none after 3 days post-op as long as pain free and no longer taking narcotic pain medication), - Shower/bathe limit: (may shower tomorrow, no submerging incisions underwater for 2 weeks, Dermabond will peel off in 1-2 weeks) - Call the surgeon's office with any questions or concerns - ; ex. temperature higher than 101.5 degrees F, excessive bleeding or pain Diet: - Resume previous diet, regular as tolerated-->consider low fat, low fiber as you had your gallbladder removed. Medications: - Resume previous medications unless instructed otherwise by your surgeon. - May alternate extra strength Tylenol and Ibuprofen as needed for mild to moderate pain - Tylenol 650 mg every 6 hours as needed - Ibuprofen 600 mg every 6 hours as needed, take with food - Percocet 1 every 6 hours, as needed for moderate to severe pain. Narcotics may cause nausea on an empty stomach, please eat before taking pain pills - Recommend daily stool softener (Colace) while taking narcotic pain medication to prevent constipation or straining. Drink plenty of water daily. Follow-up: - If not already scheduled, please call the office to schedule a two week follow-up appointment. Office number Pending Studies at Discharge: No Stand-Alone Forms: My [facility], Smoking Cessation Medications and DC Order Prescriptions: Continued oxycodone 20 mg tablet 20 mg PO Q4H PRN (Reason: Pain) acyclovir 400 mg tablet 400 mg PO QAM sennosides [senna] 8.6 mg tablet 8.6 mg PO QPM Caltrate 600 plus D 600 mg (1,500 mg)-800 unit tablet,chewable 1 tab PO QAM methylphenidate HCl 10 mg tablet 10 mg PO BID dexamethasone 4 mg tablet See Rx Instructions .ROUTE .COMPLEX Rx Instructions: 8 mg weekly, 20 mg pretreatment with each cycle of daratumumab pantoprazole 40 mg tablet,delayed release (DR/EC) 40 mg PO QAM PRN (Reason: acid reflux) Qty: 90 3RF lidocaine 5 % adhesive patch,medicated 1 patch TOP DAILY PRN (Reason: pain) Qty: 15 5RF Rx Instructions: leave on most painful area for 12 hrs amlodipine 5 mg tablet 5 mg PO QAM Qty: 90 3RF atorvastatin 10 mg tablet 10 mg PO QAM Qty: 90 3RF albuterol sulfate 90 mcg/actuation HFA aerosol inhaler 2 puff INHALATION Q6H PRN (Reason: SOB) Qty: 8.5 1RF ondansetron 8 mg tablet,disintegrating 8 mg PO TID PRN (Reason: Nausea) oxycodone [OxyContin] 20 mg tablet,oral only,ext.rel.12 hr 40 mg PO Q12H Discharge Orders: Discharge Order (Routine); Ordered 04/15/25 Ordered By: Christina Morgan Admission Data Admit Date/Time: 04/12/25 21:39 Attending Provider: Param Garcia Admit Provider: Vince Urbina Primary Care Provider: Cristina Gonsalves Other Providers: Vince Urbina Other Interventions: Discharge Summary Assessment (RN) Last Done: 04/15/25 12:20 Hospital Stay Data Consultations 04/12/25 20:09 ED Decision to Admit Stat Procedures Performed Operation Date: 04/13/25 07:00 Actual Procedures p Laparoscopic Cholecystectomy(Not Applicable) - Dilan Huerta MD Diagnostic Imagining Performed 04/12/25 15:31 US gallbladder Stat 04/12/25 16:38 CT abd pelvis IV con only Stat Pending Results Patient Have Any Pending Studies at Discharge: No Discharge Instructions Given to Patient (Per Discharging Provider) Omar Lindsey were admitted to the hospital due to an an infection in your gallbladder and gallstones. You underwent surgery and will need to follow up with your surgical team with [facility] in 2 weeks for evaluation. It was recommended you see a keyboard operator prior to discharge. You are electing to follow up with your family doctor for nutritional follow up and referral to a quill reamer to address these concerns. Please see below for recommendations for pain management medication implementation with Motrin and Tylenol. You have relayed that you are on OxyContin extended at home at bedtime and as needed Oxycodone with adequate supplies of this medication at home for self administration. 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 You have decided to purchase this over the counter. Please follow up with your family doctor within one week of discharge. Post-Surgical ~Discharge Instructions Activity Recommendations: - Lifting limitation: (<20 pounds for 3-4 weeks), - Exercise/sex/sports limit: (nonstrenuous for 2 weeks), - Driving or machine use limit: (none after 3 days post-op as long as pain free and no longer taking narcotic pain medication), - Shower/bathe limit: (may shower tomorrow, no submerging incisions underwater for 2 weeks, Dermabond will peel off in 1-2 weeks) - Call the surgeon's office with any questions or concerns - ; ex. temperature higher than 101.5 degrees F, excessive bleeding or pain Diet: - Resume previous diet, regular as tolerated-->consider low fat, low fiber as you had your gallbladder removed. Medications: - Resume previous medications unless instructed otherwise by your surgeon. - May alternate extra strength Tylenol and Ibuprofen as needed for mild to moderate pain - Tylenol 650 mg every 6 hours as needed - Ibuprofen 600 mg every 6 hours as needed, take with food - Percocet 1 every 6 hours, as needed for moderate to severe pain. Narcotics may cause nausea on an empty stomach, please eat before taking pain pills - Recommend daily stool softener (Colace) while taking narcotic pain medication to prevent constipation or straining. Drink plenty of water daily. Follow-up: - If not already scheduled, please call the office to schedule a two week follow-up appointment. Office number Total Time Total Time Spent Total Time Spent (In Minutes): I spent a total of 40 minutes on the date of service in review of patient's record, and previously obtained information in person and appropriate medical visit, discussion and education of plan, with patient and/or caregiver, placing orders for tests/referral/procedures as medically necessary and documentation of pertinent clinical information in patient's medical records for their visit today. Coding Level of Care Code 77792 INP/OBS DISCH >30 MIN Diagnoses Acute calculous cholecystitis K80.00 Cancer associated pain G89.3 Multiple myeloma C90.00
== END 2025-04-15 15:14 | disposition home or self-care (01) | DRG 418 ==
LOC: ED 15:14 → EDINP 21:39 → INTOOBSV 21:39 → SUATTDRO 21:39 → 2N 23:14